=== PATIENT | male | born 1970 | race Two or more races ===

== ENCOUNTER 2020-08-06 13:21 | Outpatient (REF) | payer OTHER, SELFPAY | END 2020-08-06 13:22 | disposition home or self-care (01) | LOC: HO.LAB 13:21 | PROVIDERS: PCP Internal Medicine; Visit Provider Internal Medicine | DX: Z20.828 Contact with and (suspected) exposure to other viral communicable diseases (principal) | CPT/HCPCS: C9803; U0003 ==

== ENCOUNTER 2021-01-15 10:00 | Outpatient (REF) | payer OTHER, SELFPAY ==
--- NOTE | ~2021-01-15 | XR_ITS ---
EXAMINATION: XR CHEST CLINICAL INFORMATION: Shortness of breath COMPARISON: Chest 06/09/2019 TECHNIQUE: 2 views of the chest were obtained. FINDINGS: The lungs are hyperinflated but clear of acute process. The heart size and pulmonary vascularity is normal. No gross bony abnormality seen. XR/XR chest 2V IMPRESSION: Hyperinflated lungs without acute process.
== END 2021-01-15 10:01 | disposition home or self-care (01) ==
LOC: HO.XRAY 10:00
PROVIDERS: PCP Registered Nurse Community Health; Visit Provider Registered Nurse Community Health
DX: R06.02 Shortness of breath (principal)
CPT/HCPCS: 71046

== ENCOUNTER 2021-04-29 09:48 | Day surgery (SDC) | payer OTHER, SELFPAY ==
--- NOTE | 2021-04-28 13:08 | P.CONAN_ITS ---
Documented by User: Tina Robins NP 04/28/21 13:08 HPI - Anesthesia Eval Consult details Narrative: 51yo M for Colonoscopy FORMERLY [facility], [facility] Past Medical History Medical History Arthritis Asthma Hx of hematuria Smoker Surgical History Surgical History (Updated 04/22/21 @ 15:18 by Anne Mas, RN) History of hand surgery Social History Social History Patient Tobacco Use Status: Current everyday Tobacco user Use of substances other than those prescribed or required for medical reasons: Yes Have you been hit, kicked, punched, or otherwise hurt by someone within the past year? If so, by whom?: No Are you DNR?: No Advance Directives: No Advance Directives Information Provided: Yes Recently lost weight without trying: No Nutrition Risks: No Nutritional Risk Meds Allergies Allergy/AdvReac Type Severity Reaction Status Date / Time No Known Allergies Allergy Unverified 04/22/21 15:19 Home Medications Medication Instructions Recorded Confirmed Last Taken Type albuterol sulfate 90 mcg/actuation 1 puff INHALATION QID PRN 04/22/21 04/29/21 04/29/21 History aerosol inhaler (ProAir HFA) Exam Exam Date and Time: April 28, 2021 1308 Assessment and Plan Assessment Anesthesia Assessment: Chart Reviewed Documented by User: Vinnie Valle MD 04/29/21 10:56 FORMERLY [facility], [facility] Past Medical History Medical History Arthritis Asthma Hx of hematuria Smoker Surgical History Surgical History (Updated 04/22/21 @ 15:18 by Anne Mas, RN) History of hand surgery Social History Social History Patient Tobacco Use Status: Current everyday Tobacco user Use of substances other than those prescribed or required for medical reasons: Yes Have you been hit, kicked, punched, or otherwise hurt by someone within the past year? If so, by whom?: No Are you DNR?: No Advance Directives: No Advance Directives Information Provided: Yes Recently lost weight without trying: No Nutrition Risks: No Nutritional Risk Meds Allergies Allergy/AdvReac Type Severity Reaction Status Date / Time No Known Allergies Allergy Unverified 04/22/21 15:19 Home Medications Medication Instructions Recorded Confirmed Last Taken Type albuterol sulfate 90 mcg/actuation 1 puff INHALATION QID PRN 04/22/21 04/29/21 04/29/21 History aerosol inhaler (ProAir HFA) Exam Airway Mallampati Class: II TM Dist: >3cm Neck ROM: Full
[2021-04-29 10:05] VITALS: BP 116/81; PULSE 78; RESP 18; TEMP 36.3; O2SAT 98; BMI 20.5
[2021-04-29] MEDS: Lactated Ringers 1,000 ML 100 ML IVCONT (10:15)
[2021-04-29 12:17] VITALS: BP 85/47; PULSE 66; RESP 16; TEMP 36.2; O2SAT 98
--- NOTE | 2021-04-29 12:20 | P.BOP_ITS ---
Brief Operative Note Date of Service: 04/29/21 Pre-op diagnosis: Screening Post-op diagnosis: other (Colon polyp) Procedure: Colonoscopy to the cecum and TI with bx/removal of polyp Surgeon: Gage Hammer Anesthesia: MAC Was an Customs Entry Writer used for this Procedure?: No Estimated blood loss (mL): 2.0 Pathology: other (A. Transverse colon polyp) Condition: stable Disposition: PACU
[2021-04-29 12:23] VITALS: BP 82/47; PULSE 62; RESP 16; O2SAT 97
[2021-04-29 12:28] VITALS: BP 95/57; PULSE 62; RESP 16; O2SAT 97
[2021-04-29 12:35] VITALS: BP 101/67; PULSE 57; RESP 16; TEMP 36.2; O2SAT 97
[2021-04-29 12:41] VITALS: BP 102/72; PULSE 63; RESP 16; TEMP 36.2; O2SAT 97
--- NOTE | 2021-04-29 12:44 | OP_ITS ---
SURGEON: Gage Hammer MD INDICATIONS: The patient presents for evaluation of colorectal cancer screening. Full consent has been obtained from him for this, including risks of bleeding and perforation. PREOPERATIVE DIAGNOSIS: Colorectal cancer screening. POSTOPERATIVE DIAGNOSIS: PROCEDURE PERFORMED: Colonoscopy to cecum and terminal ileum with biopsy and removal of polyp. ESTIMATED BLOOD LOSS: COMPLICATIONS: ANESTHESIA: Monitored anesthesia care. ASSISTANTS: SPECIMENS: POSTOPERATIVE DIAGNOSES: Colorectal cancer screening, small colon polyp, sigmoid diverticulosis, and internal hemorrhoids. DESCRIPTION OF PROCEDURE: The patient was placed in the left lateral decubitus position. The digital rectal exam revealed no abnormalities. The Olympus video pediatric colonoscope was entered into the rectum and advanced easily to the cecum. Once in the cecum, I did identify normal-appearing cecal pouch with appendiceal orifice and a normal-appearing ileocecal valve. The terminal ileum was cannulated and appeared normal. Scope was withdrawn back in the colon. The entire cecum and ileocecal valve appeared normal. The scope was slowly withdrawn assessing all mucosal surfaces carefully. Preparation was excellent. In the transverse colon, was a flat approximately 4 or 5 mm polyp, which was biopsied and completely removed with cold biopsy forceps. I did not visualize any other polyps, colitis, nor angiodysplasia. There was a mild amount of sigmoid diverticulosis. In the rectum, scope was retroflexed visualizing small internal hemorrhoids, but no other pathology. The rectal mucosa appeared normal. The scope was straightened out and withdrawn from the patient. He tolerated the procedure well and was returned to the recovery area in stable condition. IMPRESSION: 1. Small colon polyp, status post biopsy and removal. 2. Diverticulosis. 3. Internal hemorrhoids. PLAN: The results of the biopsy will be checked. Given the family history of 2 sisters with colon polyps, I would recommend a repeat colonoscopy in 5 years for further screening even if the polyp is not a tubular adenoma. He will otherwise see me on a p.r.n. basis. MD ANALY Vee/LEROY / [id number]
== END 2021-04-29 12:43 | disposition home or self-care (01) ==
PROVIDERS: Visit Provider Internal Medicine
PROC: 0DJD8ZZ Inspection of Lower Intestinal Tract, Via Natural or Artificial Opening Endoscopic (ICD-10-PCS; CPT 45378; principal; 2021-04-29 11:20)
DX: Z12.11 Encounter for screening for malignant neoplasm of colon (principal); D12.3 Benign neoplasm of transverse colon; K57.30 Diverticulosis of large intestine without perforation or abscess without bleeding; K64.8 Other hemorrhoids; Z83.71 Family history of colonic polyps
CPT/HCPCS: 45380; 88305; J2370

== ENCOUNTER 2021-06-24 12:55 | Outpatient (REF) | payer OTHER, SELFPAY ==
[2021-06-24 17:17] LABS: Urine Cytology See Pathology rpt
== END 2021-06-24 12:56 | disposition home or self-care (01) ==
LOC: HO.LAB 12:55
PROVIDERS: PCP Registered Nurse Community Health; Visit Provider Urology
DX: R31.29 Other microscopic hematuria (principal)
CPT/HCPCS: 88112; 99202

== ENCOUNTER 2021-07-07 14:25 | Outpatient (REF) | payer OTHER, SELFPAY ==
[2021-07-07 15:21] LABS: Blood Urea Nitrogen 16 mg/dL (9-16); Calcium 8.9 mg/dL (8.4-10.2)
[2021-07-08 08:49] LABS: Estimated Glomerular Filt Rate > 60
== END 2021-07-07 14:26 | disposition home or self-care (01) ==
LOC: HO.LAB 14:25
PROVIDERS: PCP Internal Medicine; Visit Provider Urology
DX: N20.0 Calculus of kidney (principal); R31.29 Other microscopic hematuria; R39.15 Urgency of urination
CPT/HCPCS: 36415; 82310; 82565; 84520

== ENCOUNTER 2021-07-08 07:51 | Outpatient (REF) | payer OTHER, SELFPAY ==
--- NOTE | ~2021-07-08 | CT_ITS ---
EXAMINATION: CT ABDOMEN AND PELVIS WITHOUT AND WITH CONTRAST CLINICAL INFORMATION: Gross hematuria. COMPARISON: None. TECHNIQUE: Noncontrast CT of the abdomen and pelvis is performed followed by split bolus contrast-enhanced images using 85 mL Omnipaque 350 contrast.?Postcontrast imaging is performed during the combined nephrogram and excretion phase. Sagittal and coronal reformatted images were obtained on the technologist's workstation for both the precontrast and postcontrast phases. This CT examination was performed using dose optimization techniques as appropriate, variously including the following: *Automated exposure control *Adjustment of mA and/or kV according to patient size (this includes techniques or standardized protocols for targeted exams where dose is matched to indication/reason for exam; i.e. extremities or head) *Use of iterative reconstruction technique DLP: 284 mGy-cm FINDINGS: LUNG BASES: The visualized lung bases are unremarkable. LIVER, GALLBLADDER, AND BILIARY TREE: The liver is normal in size, shape, and attenuation. No focal hepatic lesion or biliary ductal dilatation is present. The gallbladder is unremarkable with no evidence of radiopaque gallstones, gallbladder wall thickening, or obvious pericholecystic inflammatory changes. PANCREAS: Unremarkable. SPLEEN: Unremarkable. ADRENAL GLANDS: Unremarkable. KIDNEYS AND URETERS: The kidneys are normal in size, shape, and attenuation. No hydronephrosis, hydroureter, or calculi seen. There are 2 small low-attenuation lesions in the left kidney probably representing cysts. There is slight mass effect on the right posterior renal pelvis from a vessel. The collecting systems are otherwise normal. There is question of luminal narrowing or small filling defect in the right distal ureter, for example sagittal reconstructed image 59 series 11. This does not appear to be related to mass effect from a vessel, and retrograde exam should be considered. The right ureter is otherwise unremarkable. The proximal left ureter is well opacified with excreted contrast and normal appearing. The left distal ureter is not optimally opacified with excreted contrast. BLADDER: Unremarkable. GASTROINTESTINAL TRACT: The small and large bowel are unremarkable. The appendix is unremarkable. ABDOMINAL WALL: No significant hernia is appreciated. LYMPH NODES: Normal. VASCULAR: Unremarkable. PELVIC VISCERA: Unremarkable. OSSEUS STRUCTURES: There are mild degenerative changes at the hip joints. CT/CT urogram IMPRESSION: Small left renal cysts. Slight luminal narrowing or mass effect on the right posterior distal ureter. Retrograde exam should be considered. The left distal ureter is not optimally opacified with excreted contrast.
[2021-07-08] MEDS: iohexoL 350 MG/ML 100 ML INFUS..BTL IV (10:13)
== END 2021-07-08 07:52 | disposition home or self-care (01) ==
LOC: HO.CT 07:51
PROVIDERS: PCP Registered Nurse Community Health; Visit Provider Urology
DX: R31.0 Gross hematuria (principal); R31.29 Other microscopic hematuria
CPT/HCPCS: 74178; Q9967

== ENCOUNTER → 2021-07-29 12:59 | Outpatient (BNVA) | payer OTHER, SELFPAY | PROVIDERS: PCP Registered Nurse Community Health; Visit Provider Urology ==

== ENCOUNTER 2021-08-08 09:58 | Outpatient (REF) | payer OTHER, SELFPAY ==
[2021-08-08 11:10] LABS: COVID-19 Test Positive (Negative)
== END 2021-08-08 09:59 | disposition home or self-care (01) ==
LOC: HO.LAB 09:58
PROVIDERS: Visit Provider Internal Medicine
DX: Z20.822 Contact with and (suspected) exposure to COVID-19 (principal)
CPT/HCPCS: 36415; 87635; C9803

== ENCOUNTER 2022-07-28 14:47 | Outpatient (REF) | payer OTHER, SELFPAY ==
--- NOTE | 2022-07-28 | PFT_ITS ---
Forced vital capacity 114%, FEV1 of 98%, FEV1/FVC ratio is 66. SES38-41 of 56% and MVV 76%. Post bronchodilator therapy, there is significant improvement in FEV1 and OGX51-48. Total lung capacity 121% and residual volume 141%. Diffusion capacity 95%. CONCLUSION: There is evidence of mild obstructive airway disorder with some air trapping. Almost complete reversibility after bronchodilator therapy is noted. These findings are consistent with mild bronchial asthma. Clinical correlation recommended. Kisha Weems MD MSFabiano/MODL / [id number]
== END 2022-07-28 14:48 | disposition home or self-care (01) ==
LOC: HO.RESP 14:47
PROVIDERS: PCP Registered Nurse; Visit Provider Registered Nurse
DX: R06.02 Shortness of breath (principal); Z72.0 Tobacco use
CPT/HCPCS: 94060; 94727; 94729

== ENCOUNTER 2022-08-01 11:03 | Outpatient (REF) | payer OTHER, SELFPAY ==
[2022-08-01 16:50] LABS: Urine Cytology See Pathology rpt
== END 2022-08-01 11:04 | disposition home or self-care (01) ==
LOC: HO.LAB 11:03
PROVIDERS: Visit Provider Urology
DX: R31.29 Other microscopic hematuria (principal); R39.11 Hesitancy of micturition
CPT/HCPCS: 88112; 99212

== ENCOUNTER → 2022-10-10 13:39 | Outpatient (BNVA) | payer OTHER, SELFPAY | PROVIDERS: PCP Registered Nurse; Visit Provider Orthopaedic Surgery | DX: M18.11 Unilateral primary osteoarthritis of first carpometacarpal joint, right hand (principal); M19.041 Primary osteoarthritis, right hand; M19.042 Primary osteoarthritis, left hand; R20.0 Anesthesia of skin | CPT/HCPCS: 99202 ==

== ENCOUNTER 2023-01-26 13:15 | Outpatient (REF) | payer OTHER, SELFPAY ==
--- NOTE | ~2023-01-26 | CT_ITS ---
EXAMINATION: CT CHEST SCREENING CLINICAL INFORMATION: Nicotine dependence. COMPARISON: Chest x-ray 01/18/2021. TECHNIQUE: Multidetector volumetric CT imaging of the chest is performed without contrast using low dose technique. Additional 2D coronal and sagittal reformatted images and axial 3D maximum intensity projection (MIP) images are generated on the CT workstation. This CT examination was performed using dose optimization techniques as appropriate, variously including the following: *Automated exposure control *Adjustment of mA and/or kV according to patient size (this includes techniques or standardized protocols for targeted exams where dose is matched to indication/reason for exam; i.e. extremities or head) *Use of iterative reconstruction technique DLP: 42 mGy-cm. FINDINGS: LUNGS: The lungs are clear with no evidence of inflammation or nodules. MEDIASTINUM: The thyroid lobes are symmetric and normal. The central trachea and the bronchi are widely patent. The heart size and the great vessels are normal caliber. No pericardial effusion seen. No abnormal size mediastinal lymph nodes. CORONARY ARTERY CALCIFICATION: Mild coronary artery calcifications are present. PLEURA: There is no pleural effusion. No pleural mass or thickening. AXILLA: No lymphadenopathy. UPPER ABDOMEN: Visualized liver, spleen, pancreas and bilateral adrenal glands are unremarkable. No radiopaque gallstone seen. OSSEOUS STRUCTURES: No aggressive lytic or sclerotic process seen. CT/CT lung screening IMPRESSION: Unremarkable CT chest exam. ASSESSMENT: Lung-RADS category 1: Negative RECOMMENDATION: Low-dose annual CT chest.
== END 2023-01-26 13:16 | disposition home or self-care (01) ==
LOC: HO.CT 13:15
PROVIDERS: PCP Registered Nurse; Visit Provider Physician Assistant Medical
DX: Z12.2 Encounter for screening for malignant neoplasm of respiratory organs (principal); F17.210 Nicotine dependence, cigarettes, uncomplicated
CPT/HCPCS: 71271; G0296

== ENCOUNTER 2023-02-09 13:45 | Outpatient (AMB) | payer OTHER, SELFPAY ==
--- NOTE | 2023-02-09 14:07 | MHC.OFFVIS ---
Intake Intake Visit Reasons: 6m follow up/UA Intake Note: Patient is present for Follow Up Urinalysis Urology Med: Finasteride Antibiotic Allergy: None Blood Thinner: None Allergies No Known Allergies Allergy (Verified 02/09/23 14:08) HPI HPI Comments History of Present Illness Details Jey is a pleasant male. He is a patient of Dr. Adorno. He is seen for the following urologic conditions - microscopic hematuria - urinary hesitancy Persistent microscopic hematuria on finasteride Lower urinary tract symptoms Progressive Primarily urinary hesitancy with incomplete bladder emptying Current therapy - finasteride Microscopic hematuria Longstanding since he was a child Prior urology evaluations periodically over time Last evaluation approximately 2014 Cytology 07/10 negative Imaging 07/10 CT urogram no evidence of filling defects Background history smoker May follow in 12 months [facility] Medical History Arthritis Asthma Microscopic hematuria Nicotine dependence, cigarettes, uncomplicated Tubular adenoma of colon (~2020) Surgical History History of colonoscopy History of hand surgery Family History Father Heart attack Brother Multiple sclerosis Mother Osteoporosis Social History Alcohol intake: current Patient Tobacco Use Status: Current everyday Tobacco user Cigarettes Per Day: 10 Years Smoked: (onset 14yo, 1ppd x 38years - now 1/2 ppd - 35pyh) Current occupational status: employed 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 Review of Systems Const Denies chills and Denies fever(s) Card Reports no additional complaints and Denies syncope Resp Denies cough GI Denies abdominal pain and Denies heartburn Reports as per HPI and Denies change in libido Neuro Denies syncope Psych Denies change in libido Endo Denies change in libido Physical Exam Const General: cooperative, healthy appearing, comfortable and no acute distress Orientation/consciousness: patient oriented x3 HEENT Face and sinus: Yes normal facial exam Mouth: moist mucous membranes Neck Neck: Yes normal visual inspection, Yes full ROM and Yes trachea midline Chest Chest palpation & inspection: normal inspection of the chest Resp Effort & Inspection: normal respiratory effort, able to speak in complete sentences and no respiratory distress GI Inspection: Yes normal to inspection Back/Spine/Pelvis Cervical Spine: normal cervical lordosis Thoracic/Lumbar Spine: thoracic and lumbar spine normal to inspection Skin General skin exam: no rashes or lesions noted Neuro General: patient oriented x3, gait normal, tone normal and moves all extremities Extrem General: Yes normal to inspection and Yes capillary refill normal Results AMB Urinalysis, Automated UA Leukoctes 0 Emily/uL Last Edit by Ruma Mary Charito on 02/09/23 14:27 UA Nitrite Negative Last Edit by Ruma Mary A on 02/09/23 14:27 UA Urobilinogen 0.2 mg/dL Last Edit by Ruma Mary A on 02/09/23 14:27 UA Protein 0 mg/dL Last Edit by Ruma Mary A on 02/09/23 14:27 UA pH 6.0 Last Edit by Ruma Mary A on 02/09/23 14:27 UA Blood 200 Mac/uL Last Edit by Ruma Mary [facility] on 02/09/23 14:27 UA Specific [place] 1.030 Last Edit by Ruma Mary A on 02/09/23 14:27 UA Ketone Negative Last Edit by Ruma Mary [facility] on 02/09/23 14:27 UA Bilirubin 0 mg/dL Last Edit by Ruma Mary A on 02/09/23 14:27 UA Glucose 0 mg/dL Last Edit by Ruma Mary [facility] on 02/09/23 14:27 Results Reviewed Results Reviewed: Laboratory Last Values Urine pH (Auto) 6.0 02/09/23 14:08 Specific [place] (Auto) 1.030 02/09/23 14:08 Urine Protein (Auto) 0 mg/dL 02/09/23 14:08 Glucose (UA)(Auto) 0 mg/dL 02/09/23 14:08 Urine Ketones (Auto) Negative 02/09/23 14:08 Urine Blood (Auto) 200 Mac/uL 02/09/23 14:08 Urine Nitrite (Auto) Negative 02/09/23 14:08 Urine Bilirubin (Auto) 0 mg/dL 02/09/23 14:08 Urine Urobilinogen (Auto) 0.2 mg/dL 02/09/23 14:08 Leukocyte Esterase (Auto) 0 Emily/uL 02/09/23 14:08 Assessment & Plan Assessment & Plan (1) Microscopic hematuria: Code(s): R31.29 - Other microscopic hematuria Plan Six months repeat UA Orders: Orders AMB Urinalysis Automated 02/09/23 Z13.9 - Encounter for screening, unspecified Patient Instructions: Imaging studies, laboratory and physical exam results were discussed and reviewed in detail. No major barriers to patient understanding were identified. An opportunity to ask questions regarding the treatment plan was provided. All questions were answered. The patient expressed understanding and agreement with the above treatment plan. The patient is aware they should contact our office by phone for worsening of their current condition or the appearance of new urologic symptoms. Compliance is encouraged with any medications and followup testing that is ordered. It is a privilege to participate in the urologic care of your patient. If you have any questions or concerns regarding treatment for the above conditions, or other urologic issues, please do not hesitate to contact me. The office telephone contact is [phone]. This note is constructed using voice recognition software. While every effort has been made to ensure accuracy warp hauler errors may have been included. Yours sincerely, Dr Tigre Soria MD, [facility] - Urology Providers of Expert, Compassionate Care for the Genitourinary System Coding Level of Care Code Est Pt Level 3 (07910) Diagnoses Microscopic hematuria R31.29
== END 2023-02-09 14:49 | disposition home or self-care (01) ==
LOC: HO.HUSH 13:45
PROVIDERS: PCP Registered Nurse; Visit Provider Urology
DX: R31.29 Other microscopic hematuria (principal)
CPT/HCPCS: 99213

== ENCOUNTER → 2023-02-09 13:45 | Outpatient (BNVA) | payer OTHER, SELFPAY | PROVIDERS: PCP Registered Nurse; Visit Provider Urology | DX: R31.29 Other microscopic hematuria (principal); R39.11 Hesitancy of micturition; R33.9 Retention of urine, unspecified; Z79.899 Other long term (current) drug therapy | CPT/HCPCS: 99212 ==

== ENCOUNTER 2023-08-10 13:22 | Outpatient (AMB) | payer OTHER, SELFPAY ==
--- NOTE | 2023-08-10 13:26 | MHC.OFFVIS ---
Intake Intake Visit Reasons: 6m/UA Intake Note: Patient is Present for Telephone Follow Up Urology Med: Finasteride, Antibiotic Allergy: none Blood Thinner:None Allergies No Known Allergies Allergy (Verified 08/10/23 13:27) Medication List - Last Reconciled 08/10/23 by Tigre Soria MD albuterol sulfate 90 mcg/actuation (ProAir HFA) 1 puff inhalation QID PRN budesonide-formoterol 80-4.5 mcg/actuation (Symbicort) 2 puffs inhalation BID diclofenac sodium 1% grams topical TID PRN finasteride 5 mg PO DAILY 90 days ibuprofen 800 mg PO Q8H nicotine (Nicotrol) 0 mg inhalation HPI HPI Comments History of Present Illness Details Jey is a pleasant male. He is a patient of Dr. Adorno. He is seen for the following urologic conditions - microscopic hematuria - urinary hesitancy Telemedicine Evaluation 15 min Consultation [employer] Basil Video attempted Persistent microscopic hematuria on finasteride Continued benefit from medication regarding urinary performance Lower urinary tract symptoms Progressive Primarily urinary hesitancy with incomplete bladder emptying Current therapy - finasteride Microscopic hematuria Longstanding since he was a child Prior urology evaluations periodically over time Last evaluation approximately 2014 Cytology 07/10 negative Imaging 07/10 CT urogram no evidence of filling defects Background history smoker May follow in 12 months [facility] Medical History Tubular adenoma of colon (~2020) Nicotine dependence, cigarettes, uncomplicated Microscopic hematuria Arthritis Asthma Surgical History History of colonoscopy History of hand surgery Family History Father Heart attack Brother Multiple sclerosis Mother Osteoporosis Social History Alcohol intake: current Patient Tobacco Use Status: Current everyday Tobacco user Cigarettes Per Day: 10 Years Smoked: (onset 14yo, 1ppd x 38years - now 1/2 ppd - 35pyh) Current occupational status: employed 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 Review of Systems Const All systems reviewed & are unremarkable except as noted in HPI and below Reports no additional complaints Resp Reports no additional complaints GI Reports no additional complaints Reports as per HPI Musc Reports no additional complaints Physical Exam Telemedicine evaluation Appropriate responses Regular breathing rate and rhythm HEENT Head: Yes normal to inspection Ears: hearing grossly normal bilaterally Eyes General: appearance normal, both eyes and all related structures Neck Neck: Yes normal visual inspection Chest Chest palpation & inspection: normal inspection of the chest Resp Effort & Inspection: normal respiratory effort and able to speak in complete sentences Assessment & Plan Assessment & Plan (1) Urinary hesitancy: Code(s): R39.11 - Hesitancy of micturition (2) Bladder outlet obstruction: Code(s): N32.0 - Bladder-neck obstruction Plan Twelve month follow-up Medications: Refilled finasteride 5 mg PO DAILY 90 tabs 3RF 90 days R39.11 - Hesitancy of micturition, N40.1 - Benign prostatic hyperplasia with lower urinary tract symptoms, N13.8 - Other obstructive and reflux uropathy, R33.9 - Retention of urine, unspecified Patient Instructions: Imaging studies, laboratory and physical exam results were discussed and reviewed in detail. No major barriers to patient understanding were identified. An opportunity to ask questions regarding the treatment plan was provided. All questions were answered. The patient expressed understanding and agreement with the above treatment plan. The patient is aware they should contact our office by phone for worsening of their current condition or the appearance of new urologic symptoms. Compliance is encouraged with any medications and followup testing that is ordered. It is a privilege to participate in the urologic care of your patient. If you have any questions or concerns regarding treatment for the above conditions, or other urologic issues, please do not hesitate to contact me. The office telephone contact is [phone]. This note is constructed using voice recognition software. While every effort has been made to ensure accuracy timber surveyor errors may have been included. Yours sincerely, Dr Tigre Soria MD, [facility] - Urology Providers of Expert, Compassionate Care for the Genitourinary System Telehealth Telehealth Location of provider rendering services: practice address Location of patient: address on file Patient Identification confirmed using: Name, : Yes Telehealth method: video Patient verbally consented to treatment: Yes Patient verbally consented to billing insurance company: Yes Patient informed of any privacy concerns related to visit: Yes Coding Level of Care Code Tele Est Pt Level 4 (08006) Diagnoses Urinary hesitancy R39.11 Bladder outlet obstruction N32.0
== END 2023-08-10 14:10 | disposition home or self-care (01) ==
LOC: HO.HUSH 13:22
PROVIDERS: PCP Registered Nurse; Visit Provider Urology
DX: R39.11 Hesitancy of micturition (principal); N32.0 Bladder-neck obstruction
CPT/HCPCS: 99213

== ENCOUNTER → 2023-08-10 13:22 | Outpatient (BNVA) | payer OTHER, SELFPAY | PROVIDERS: PCP Registered Nurse; Visit Provider Urology ==

== ENCOUNTER 2024-02-29 13:12 | Outpatient (REF) | payer OTHER, SELFPAY ==
--- NOTE | ~2024-02-29 | CT_ITS ---
EXAMINATION: CT LOW-DOSE SCREENING CHEST WITHOUT CONTRAST CLINICAL INFORMATION: Nicotine dependence, cigarettes, uncomplicated. The patient is a current smoker with a 39 pack-year history of smoking. COMPARISON: LDCT chest 01/26/2023. TECHNIQUE: Multidetector volumetric CT imaging of the chest is performed on a Siemens SOMATOM Definition scanner without contrast using low dose technique. Additional 2D coronal and sagittal reformatted images and axial 3D maximum intensity projection (MIP) images are generated on the CT workstation. This CT examination was performed using dose optimization techniques as appropriate, variously including the following: *Automated exposure control *Adjustment of mA and/or kV according to patient size (this includes techniques or standardized protocols for targeted exams where dose is matched to indication/reason for exam; i.e. extremities or head) *Use of iterative reconstruction technique TOTAL EXAM DLP: 43 mGy-cm. CTDIvol: 1.21 mGy. Please note, due to [employer] contractual, systems, and staffing issues, a radiologist was not available for review and dictation until 04/08/2024. FINDINGS: PULMONARY NODULES: -Mild respiratory degradation is present. -There are no pulmonary nodules in either lung. LUNGS: -Minor atelectasis or scarring present in the left posterior costophrenic sulcus. Lungs are otherwise clear, without abnormal consolidation or groundglass opacities. -There is mild centrilobular emphysema. -Minimal small airway thickening is present without significant bronchiectasis or endobronchial mucous plugging. -Central airways are patent and normal. -No pleural effusion or mass. MEDIASTINUM: -There is no adenopathy or mass. -The aorta is normal in caliber with minimal calcification. -The main pulmonary artery is normal in size. -Heart size is normal. No pericardial effusion. Mitral annular calcifications present. CORONARY ARTERY CALCIFICATION: Mild to moderate LAD calcifications. THYROID GLAND: Possible nodule on the right superiorly measuring 1.3 cm. This is not definitive. Otherwise normal. CHEST WALL/AXILLA: No abnormal lymph nodes or masses. Relative paucity of fat present. UPPER ABDOMEN: -Probable small type I hiatus hernia. Mild thickening of the distal esophagus is incidentally noted, possibly related to esophagitis. -Otherwise, no gross abnormality in the upper abdomen allowing for limitations of low-dose technique. OSSEOUS STRUCTURES: No suspicious focal findings. CT/CT lung screening IMPRESSION: 1. No pulmonary nodules. 2. Lungs are clear without evidence of active pulmonary disease. 3. Mild emphysema is present. Mild small airway thickening may suggest chronic bronchitis. 4. Small type I hiatus hernia suspected with mild thickening of the distal esophagus, possibly related to esophagitis. 5. Possible but not definitive 1.3 cm superior right thyroid nodule. ASSESSMENT: 1. Lung-RADS Category 1: Negative. There are no nodules or there are definitely benign nodules. 2. Lung-RADS Category S: None. RECOMMENDATION: Continued routine annual low-dose CT lung screening in 1 year is recommended. An order for CT CHEST LOW DOSE CANCER SCREENING ([id number]) can be placed.
== END 2024-02-29 13:13 | disposition home or self-care (01) ==
LOC: HO.CT 13:12
PROVIDERS: PCP Registered Nurse; Visit Provider Physician Assistant Medical
DX: Z12.2 Encounter for screening for malignant neoplasm of respiratory organs (principal); F17.210 Nicotine dependence, cigarettes, uncomplicated
CPT/HCPCS: 71271

== ENCOUNTER 2024-06-06 14:42 | Outpatient (REF) | payer OTHER, SELFPAY ==
--- NOTE | ~2024-06-06 | US_ITS ---
EXAMINATION: US ABDOMEN LIMITED CLINICAL INFORMATION: Reducible abdominal wall bulge superior to umbilicus. LDCT incidental finding of small type I hiatal hernia. Noted on CT chest 02/29/2024. COMPARISON: CT lung screening 02/29/2024. CT urogram 07/08/2021. TECHNIQUE: Real-time imaging of the palpable area of bulge just below the xiphoid process. FINDINGS: Small defect in the anterior abdominal wall roughly 2 mm through which hypoechoic soft tissue herniating from the abdomen into the subcutaneous layer roughly measures 1 x 0.3 cm probably a hernia. The area correlates with the palpable lump felt by the patient. US/US abdomen limited IMPRESSION: Ultrasound confirms small anterior abdominal wall hernia. This correlates with the area of palpable lump felt by the patient. Electronically signed by: Dexter Francis MD 07/06/2024 05:25 PM KRISTINE
== END 2024-06-06 14:43 | disposition home or self-care (01) ==
LOC: HO.US 14:42
PROVIDERS: PCP Registered Nurse; Visit Provider Registered Nurse
DX: E04.1 Nontoxic single thyroid nodule (principal)
CPT/HCPCS: 76536; 76705

== ENCOUNTER 2024-07-04 12:48 | Outpatient (REF) | payer OTHER, SELFPAY ==
--- NOTE | 2024-07-04 | PFT_ITS ---
Flows: FEV1: 107 % of predicted at 3.28 L FVC: 125 % of predicted at 4.84 L FEV1/FVC: 68 % Bronchodilator response: Absent Volumes: Total lung capacity: 109 % of predicted at 6.42 L Residual volume: 95 % of predicted at 1.59 L Slow vital capacity: 113 % of predicted at 4.84 L Expiratory reserve volume: 193 % of predicted at 1.98 L Diffusion capacity: Normal Impression: Mild obstructive ventilatory defect with no bronchodilator response. MTDD
[2024-07-04 14:26] VITALS: PULSE 63; O2SAT 99
== END 2024-07-04 12:49 | disposition home or self-care (01) ==
LOC: HO.RESP 12:48
PROVIDERS: PCP Registered Nurse; Visit Provider Registered Nurse
DX: J44.89 Other specified chronic obstructive pulmonary disease (principal); F17.200 Nicotine dependence, unspecified, uncomplicated
CPT/HCPCS: 94010; 94640; 94727; 94729

== ENCOUNTER → 2024-07-04 13:00 | Outpatient (BNV) | payer OTHER, SELFPAY | PROVIDERS: PCP Registered Nurse; Visit Provider Internal Medicine Pulmonary Disease | DX: J44.9 Chronic obstructive pulmonary disease, unspecified (principal) | CPT/HCPCS: 94060; 94727; 94729 ==

== ENCOUNTER 2024-07-24 14:24 | Outpatient (AMB) | payer OTHER, SELFPAY ==
--- NOTE | 2024-07-24 14:36 | A.OFFVIS_ITS ---
Vital Signs 07/24/24 14:42 Height 5 ft 7 in Weight 118 lb BMI 18.5 BP 124/89 Blood Pressure Location Rt brachial Position Standing Pulse 94 Intake Visit Reasons: abdominal wall hernia Intake Note: This patient presents for ventral hernia assessment. Pt c/o; reports bulge, reports discomfort, reports no changes to bowel habits. Abd US: 06/06/2024 [facility] Facilitator Required: No Accompanied by: Self / Same As Patient Allergies No Known Allergies Allergy (Verified 07/24/24 14:44) Medication List - Last Reconciled 07/24/24 by Itz Camara MD albuterol sulfate 90 mcg/actuation (ProAir HFA) 1 puff inhalation QID PRN budesonide-formoterol 80-4.5 mcg/actuation (Symbicort) 2 puffs inhalation BID diclofenac sodium 1% grams topical TID PRN finasteride 5 mg PO DAILY 90 days ibuprofen 800 mg PO Q8H nicotine (Nicotrol) 0 mg inhalation HPI HPI abdominal wall hernia: Details: 54-year-old male referred for a ventral hernia. He has noticed this small lump on his epigastric area for about 13 years. She says that this was much smaller before but has been steadily increasing in size over the years. He describes discomfort with this now. 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 He had an ultrasound done last month showing a small epigastric hernia containing fat. He denies GI complaints He admits to being a smoker. 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 [employer] Review of Systems Const Denies chills and Denies fever(s) Card Denies chest pain, Denies dyspnea and Denies dyspnea on exertion Resp Denies cough, Denies dyspnea and Denies dyspnea on exertion GI Denies hematochezia and Denies change in bowel habits Denies hematuria and Denies difficulty urinating Musc Denies back pain and Denies limited range of motion Neuro Denies focal weakness and Denies convulsions Psych Denies depression and Denies mood swings Physical Exam Vital Signs: Last Vital Signs Pulse 94 07/24/24 14:42 BP 124/89 07/24/24 14:42 BMI result Body Mass Index 18.5 Const General: comfortable and no acute distress Orientation/consciousness: patient oriented x3 Neck Neck: Yes no lymphadenopathy Resp Auscultation: clear to auscultation bilaterally Cardio Rhythm: regular rhythm GI Other: Small reducible mass on the epigastric area probably about 1 cm in size, nontender Palpation (GI): Soft to palpation, nontender and no guarding Neuro General: patient oriented x3 Assessment & Plan Assessment & Plan (1) Epigastric hernia: Code(s): K43.9 - Ventral hernia without obstruction or gangrene Category: Medical Plan He has a small epigastric hernia, seen with Valsalva especially when he is upright. This is also noted on an ultrasound ordered by his primary care physician. He wants this repaired because of discomfort. He says that this has been increasing in size. I explained to him the technique of repair with possible mesh placement. I reviewed the risks including but not limited to bleeding, infections, bowel injury, recurrence, postop pain, as well as the benefits and alternatives. I also reviewed with him what to expect postoperatively. Coding Level of Care Code New Pt Level 3 (94436) Diagnoses Epigastric hernia K43.9
[2024-07-24 14:42] VITALS: BP 124/89; PULSE 94; BMI 18.5
== END 2024-07-24 14:53 | disposition home or self-care (01) ==
PROVIDERS: PCP Registered Nurse; Visit Provider Surgery
DX: K43.9 Ventral hernia without obstruction or gangrene (principal)
CPT/HCPCS: 99203

== ENCOUNTER → 2024-07-24 14:24 | Outpatient (BNVA) | payer OTHER, SELFPAY | PROVIDERS: PCP Registered Nurse; Visit Provider Surgery | DX: K43.9 Ventral hernia without obstruction or gangrene (principal) | CPT/HCPCS: 99202 ==

== ENCOUNTER 2024-09-02 11:11 | Day surgery (SDC) | payer OTHER, SELFPAY ==
--- NOTE | 2024-08-29 12:42 | HO.ANESPROP2 ---
Documented by User: Tina Robins NP 08/29/24 12:43 HPI - Anesthesia Eval Consult details Narrative: 54yo M for Repair Hernia Epigastric Reducible with possible mesh PMFSH Active Problems Active Problems: All Active Problems Epigastric hernia (Acute) Bladder outlet obstruction (Acute) Microscopic hematuria (Acute) Tubular adenoma of colon (Acute ~2020) Nicotine dependence, cigarettes, uncomplicated (Acute) Osteoarthritis of hands, bilateral (Acute) Bilateral hand numbness (Acute) Arthritis of carpometacarpal (CMC) joint of right thumb (Acute) Urinary hesitancy (Acute) Past Medical History Medical History Epigastric hernia Tubular adenoma of colon (~2020) Nicotine dependence, cigarettes, uncomplicated Microscopic hematuria Arthritis Asthma Family History Family History Father Heart attack Brother Multiple sclerosis Mother Osteoporosis Surgical History Surgical History History of colonoscopy History of hand surgery Social History Social History Are you a primary insurance healthcare representative to a significant other at home: No Do you presently have visiting nurse or other home services: No Alcohol intake: current Alcohol intake frequency: 0-2 drinks per day Patient Tobacco Use Status: Current everyday Tobacco user Tobacco use type: Cigarette Cigarettes Per Day: 2 Years Smoked: (onset 14yo, 1ppd x 38years - now 1/2 ppd - 35pyh) Use of substances other than those prescribed or required for medical reasons: No Substance Use Frequency: Daily Have you been hit, kicked, punched, or otherwise hurt by someone within the past year? 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 Allergies Allergy/AdvReac Type Severity Reaction Status Date / Time No Known Allergies Allergy Verified 09/02/24 11:50 Home Medications ?Medication ?Instructions ?Recorded ?Confirmed ?Last Taken ?Type albuterol sulfate 90 mcg/actuation 1 puff inhalation QID PRN Wheezing 04/22/21 07/24/24 04/29/21 History aerosol inhaler (ProAir HFA) ibuprofen 800 mg tablet 800 mg PO Q8H 06/24/21 07/24/24 09/02/24 History budesonide-formoterol HFA 80 2 puff inhalation BID 10/10/22 07/24/24 Unknown History mcg-4.5 mcg/actuation aerosol inhaler (Symbicort) diclofenac sodium 1 % topical gel g topical TID PRN pain 10/10/22 07/24/24 Unknown History nicotine 10 mg inhalation 0 mg inhalation 10/10/22 07/24/24 Unknown History cartridge (Nicotrol) amoxicillin 500 mg capsule 500 mg PO Q8H 09/02/24 09/02/24 09/02/24 History Assessment and Plan Assessment Anesthesia Assessment: Chart Reviewed Documented by User: Arti Davies MD 09/02/24 13:13 PMFSH Past Medical History Medical History Epigastric hernia Tubular adenoma of colon (~2020) Nicotine dependence, cigarettes, uncomplicated Microscopic hematuria Arthritis Asthma Family History Family History Father Heart attack Brother Multiple sclerosis Mother Osteoporosis Family history of problems with anesthesia: No Surgical History Surgical History History of colonoscopy History of hand surgery History of Problems with Anesthesia: No Social History Social History Are you a primary insurance healthcare representative to a significant other at home: No Do you presently have visiting nurse or other home services: No Alcohol intake: current Alcohol intake frequency: 0-2 drinks per day Patient Tobacco Use Status: Current everyday Tobacco user Tobacco use type: Cigarette Cigarettes Per Day: 2 Years Smoked: (onset 14yo, 1ppd x 38years - now 1/2 ppd - 35pyh) Use of substances other than those prescribed or required for medical reasons: No Substance Use Frequency: Daily Have you been hit, kicked, punched, or otherwise hurt by someone within the past year? 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 Allergies Allergy/AdvReac Type Severity Reaction Status Date / Time No Known Allergies Allergy Verified 09/02/24 11:50 Home Medications ?Medication ?Instructions ?Recorded ?Confirmed ?Last Taken ?Type albuterol sulfate 90 mcg/actuation 1 puff inhalation QID PRN Wheezing 04/22/21 07/24/24 04/29/21 History aerosol inhaler (ProAir HFA) ibuprofen 800 mg tablet 800 mg PO Q8H 06/24/21 07/24/24 09/02/24 History budesonide-formoterol HFA 80 2 puff inhalation BID 10/10/22 07/24/24 Unknown History mcg-4.5 mcg/actuation aerosol inhaler (Symbicort) diclofenac sodium 1 % topical gel g topical TID PRN pain 10/10/22 07/24/24 Unknown History nicotine 10 mg inhalation 0 mg inhalation 10/10/22 07/24/24 Unknown History cartridge (Nicotrol) amoxicillin 500 mg capsule 500 mg PO Q8H 09/02/24 09/02/24 09/02/24 History Exam Airway Mallampati Class: II TM Dist: >3cm Neck ROM: Full Heart: rrr Lungs: cta Assessment and Plan Assessment Anesthesia Assessment: Anesthesia Plan Discussed and Smoking Cess. Discussed Final Anesthetic Review Family History of Problems with Anesthesia: No History of Problems with Anesthesia: No NPO: Yes ASA Class: III Final Preanesthetic Review: No Changes in Pt Med Stat, Meds/Allgs Chart Reviewed, Consent Obtained/Reviewed and Anes Risks/Benef Reviewed Patient Risk: Intermediate Procedure Risk: Intermediate Anesthetic Plan Anesthetic Plan: GA Disposition: Standard PACU
[2024-08-29 13:28] VITALS: BMI 18.5
[2024-09-02 11:58] VITALS: BP 126/87; PULSE 61; RESP 14; TEMP 36.6; O2SAT 98; BMI 18.6
[2024-09-02] MEDS: Lactated Ringers 1,000 ML 100 ML IVCONT (12:11)
--- NOTE | 2024-09-02 13:10 | MHC.SHP ---
Pre-Procedural Eval Section A - 24 Hr Update-Section A only Date of Service: 09/02/24 Section B - Complete if H&P > 30 days Chief Complaint: Ventral hernia without obstruction or gangrene Details of Present Illness: Has a reducible hernia on the epigastric area, with tenderness and pain, increased in size Relevant Family History (Specify if Yes): No Relevant Social History: Tobacco Use Present Medications: see Short Stay Collaborative assessment Medical History: Significant History (Osteoarthritis nicotine dependence) Allergies: Allergies Allergy/AdvReac Type Severity Reaction Status Date / Time No Known Allergies Allergy Verified 09/02/24 11:50 Review of Systems Sugical H&P ROS: Negative: Constitution, Cardiovascular, Respiratory and Gastrointestinal Exam Surgical H&P Exam: Normal: Heart, Normal: Lungs and Normal: Extremities and Significant Findings: Abdomen (Small epigastric hernia, tender, about 1.5 cm) Plan Diagnosis/Plan: Unchanged I have reviewed the history and physical and performed a pertinent physical examination on my patient. No changes have occurred unless specified. Time Spent With Patient Time: Total time managing care of this patient today ____ minutes.
--- NOTE | 2024-09-02 14:11 | W.PM.OPN ---
Operative Note Operative Note Date of Service: 09/02/24 Narrative: Preop diagnosis: Epigastric hernia reducible Postop diagnosis: The same Procedure: Repair of epigastric hernia Surgeon: Itz Camara MD assistant dean of students: CHERRI Rodriguez The patient is a 54-year-old male with note of reducible mass on the epigastric area. He was describing discomfort and pain with this. This appeared to be a reducible epigastric hernia maybe about 1 cm in diameter. The technique of the planned procedure as was the risks, benefits, and alternatives He was brought to the operating room. He was placed supine under general general anesthesia via laryngeal mask airway. The abdomen was prepped and draped in the usual sterile fashion. A surgical time-out was done. The patient received cefazolin 2 g IV preoperatively I infiltrated the planned line of incision with lidocaine 1%. I made a short incision on the skin transversely with a blade 15. This was carried down through the full-thickness of the skin subcutaneous fat. We gently dissected with Metzenbaum scissors until was able to visualize a hernia. This was fat containing. I sharply dissected the hernia contents down to the fascial defect using Metzenbaum scissors. This allowed me to completely reduce the hernia through the defect. The fascial defect was about point 6 cm in diameter. I therefore did not use a mesh. I closed this defect with a [id number] Maxon 1 stitch Then proceeded to reapposed the subcutaneous layer with Polysorb 3-0 interrupted sutures. Skin closure was achieved with Polysorb 4-0 subcuticular running stitch. Area was then infiltrated with Marcaine 0.5% for postop analgesia. Dressings were applied. The procedure was completed. The patient tolerated the procedure well. There were no immediate complications. There was minimal blood loss. The patient was extubated without difficulty and transferred to the recovery with stable vital signs.
[2024-09-02 14:29] VITALS: BP 90/50; PULSE 50; RESP 14; TEMP 36.2; O2SAT 99
[2024-09-02 14:34] VITALS: BP 111/67; PULSE 58; RESP 16; O2SAT 98
[2024-09-02 14:44] VITALS: BP 107/69; PULSE 49; RESP 17; O2SAT 96
[2024-09-02 15:02] VITALS: BP 117/72; PULSE 51; RESP 16; TEMP 36.1; O2SAT 96
== END 2024-09-02 15:19 | disposition home or self-care (01) ==
PROVIDERS: PCP Registered Nurse; Visit Provider Surgery
PROC: (CPT 49592; principal; 2024-09-02 13:30)
DX: K43.9 Ventral hernia without obstruction or gangrene (principal); Z79.1 Long term (current) use of non-steroidal anti-inflammatories (NSAID); J45.909 Unspecified asthma, uncomplicated; R31.29 Other microscopic hematuria; M19.90 Unspecified osteoarthritis, unspecified site; Z79.899 Other long term (current) drug therapy; F17.210 Nicotine dependence, cigarettes, uncomplicated
CPT/HCPCS: 49592; J0690; J2003; J2704; J2795; J3010

== ENCOUNTER → 2024-09-02 11:11 | Outpatient (BNV) | payer OTHER, SELFPAY | PROVIDERS: PCP Registered Nurse; Visit Provider Surgery | DX: K43.9 Ventral hernia without obstruction or gangrene (principal) | CPT/HCPCS: 49591 ==

== ENCOUNTER 2024-09-18 14:26 | Outpatient (AMB) | payer OTHER, SELFPAY ==
--- NOTE | 2024-09-18 14:26 | MHC.OFFVIS ---
Vital Signs 09/18/24 14:33 Height 5 ft 7 in Weight 115 lb 8 oz BMI 18.1 Intake Visit Reasons: s/p epigastric hernia w/ poss mesh Intake Note: This patient presents for post-op assessment status post Repair of epigastric hernia. Pt c/o; reports he still feels a bulge, reports about one week ago he got a stomach virus-upset stomach, nausea, vomiting and no appetite. Medical Referral Coordinator Required: No Accompanied by: Self / Same As Patient Allergies No Known Allergies Allergy (Verified 09/18/24 14:35) HPI HPI s/p epigastric hernia w/ poss mesh: Details: He had undergone primary repair of a small epigastric hernia last 09/02/2024. He tolerated procedure well. He denies any significant complaints at this time. [facility] Medical History Epigastric hernia Tubular adenoma of colon (~2020) Nicotine dependence, cigarettes, uncomplicated Microscopic hematuria Arthritis Asthma Surgical History History of hernia repair (~09/02/24) History of colonoscopy History of hand surgery Family History Father Heart attack Brother Multiple sclerosis Mother Osteoporosis Social History Are you a primary hospice home care coordinator to a significant other at home: No Do you presently have visiting nurse or other home services: No Alcohol intake: current Alcohol intake frequency: 0-2 drinks per day Patient Tobacco Use Status: Current everyday Tobacco user Tobacco use type: Cigarette Cigarettes Per Day: 2 Years Smoked: (onset 14yo, 1ppd x 38years - now 1/2 ppd - 35pyh) Current occupational status: employed 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 No mesh was used because of the very small size of the hernia He is doing very well. The incisions well healed. I advised him to avoid lifting anything more than 20 lb for about 3 more weeks. He can otherwise follow up on a p.r.n. basis. Coding Level of Care Code Global (81996) Diagnoses Epigastric hernia K43.9
[2024-09-18 14:33] VITALS: BMI 18.1
--- OUTSIDE RECORDS SUMMARY | 2024-09-18 18:22 | XMS_ITS | Patient Health Record ---
Author Organization [facility] Address [address] [place] [address] Care Team Providers Care Extract Puller Name Role Phone Ruma Basilio M.D. Primary Care Provider Rhea Gage Cade Unavailable [phone] ALLERGIES No Known Allergies REASON FOR REFERRAL No Information MEDICATIONS Medication SIG (Take, Route, Frequency, Duration) Notes Start Date End Date Status Dulcolax (colon prep) 5 MG take at 3:00 p.m and 7:00p.m. Orally two tablets twice a day for one day for 1 day 04/05/2021 Active MiraLax 17 GM/SCOOP Take 1 238Gm bottle as directed for the colonoscopy prep instructions Orally Take full bottle of Miralax powder mixed in Gatorade the day before the colonoscopy for 1 days 04/05/2021 Active albuterol Active IMMUNIZATIONS Vaccine Route Administration Date Status Comme nts Influenza Unknown 04/05/2021 Refused SOCIAL HISTORY Tobacco Use: Social History Observation Description Date Details (start date - stop date) Current Smoker NA - NA Sex Assigned At : Social History Observation Description Sex Assigned At Unknown Tobacco Use/Smoking Question Answer Notes Patient is a current smoker How often do you smoke cigarettes? every day How many cigarettes a day do you smoke? 6-10 Alcohol Screen Question Answer Notes Did you have a drink contain ing alcohol in the past year? Yes How often did you have a dri nk containing alcohol in the past year? 4 or more times a week (4 points) How many drinks did you have on a typical day when you were drinking in the past year? 5 or 6 drinks (2 points) Points 6 Interpretation Positive PROBLEMS Problem Type ICD Code Onset Dates Problem Status W/U Status Risk SNOMED Code Notes Problem Encounter for screening for malignant neoplasm of colon (Z12.11) Active confirmed 850501333 Problem Preprocedural examination (Z01.818) Active confirmed 983054728489091 Problem Diverticulosis of sigmoid colon (K57.30) Active confirmed Diverticulosis of sigmoid colon (885186642) PLAN OF TREATMENT Pending Test Test Name Order Date Pathology 04/29/2021 Future Test Test Name Order Date COLONOSCOPY 04/05/2021 Insurance Providers Payer Name Payer Address Payer Phone Subscriber Number Group Number Insured Name Patient Relationship to Insured Coverage Start Date Coverage End Date [facility] [address] [address] [place], [place] [id number] ROSALIND MATIAS Self - patient is the insured MEDICAL (GENERAL) HISTORY Medical History History ICD Code Asthma History of hematuria-sees a Urologist--h e describes a negative cystoscopy Arthritis in his fingers Pneumonia Denies NC,DM,CVA,renal disease Surgical History Surgery Date(Month/Year) Right hand-broken hand and a trigger fin gertrudis
--- OUTSIDE RECORDS SUMMARY | 2024-09-18 18:23 | XMS_ITS | Encounter Summary ---
Author Organization [employer] Address [address] [place] [address] Care Team Providers Care Cement Finisher Helper Name Role Phone Ying Steinberg Primary Care Provider [phone] Tigre Soria MD Unavailable [phone] Encounter Details Date Type Department Care Team (Latest Contact Info) Description 08/29/2024 Travel Social History Tobacco Use Types Packs/Day Years Used Date Smoking Tobacco: Every Day Cigarettes Smokeless Tobacco: Never Comments:1 pack a week. Inte rested in quitting, no Chantix - bad reaction. Alcohol Use Standard Drinks/Week Comments Yes 20 (1 standard drink = 0.6 oz pu re alcohol) Alcohol Answer Date Recorded Q1: How often do you have a drink containing alc ohol? 5 08/29/2024 Q2: How many drinks containi ng alcohol do you have on a typical day when you are drinking? 1 08/29/2024 Q3: How often do you have six or more drinks on one occasion? 2 08/29/2024 Depression Answer Date Recorded Patient Health Questionnaire-9 Score 0 05/23/2024 Patient Health Questionnaire-9 Score 0 05/23/2024 Last PHQ-9: Questionnaire Data Not on file 1 Housing Stability Answer Date Recorded What is your housing situation today? I have paul lawler 05/23/[address] you li ve. Do you have problems with any of the following? None of the above 05/23/2024 Food Insecurity Answer Date Recorded Within the past 12 months, y ou worried that your food would run out before you got money to buy more: Often true 05/23/2024 Within the past 12 months,th e food you bought just didn't last and you didn't have enough money to get more: Often true 11/2023 Transportation Answer Date Recorded In the past 12 months, has l ack of transportation kept you from medical appts, meetings, work or from getting things needed for daily living? No 05/23/2024 Utilities Answer Date Recorded In the past 12 months, has t he electric, gas, oil or water company threatened to shut off services in your home? Yes 05/23/2024 Depression Answer Date Recorded Patient Health Questionnaire-2 Score 0 05/23/2024 Internet Access Answer Date Recorded Internet Access Q1 Yes 05/23/2024 Internet Access Q2 Not on file 05/23/2024 Sex and Gender Information Value Date Recorded Sex Assigned at Male 06/19/2022 10:15 AM EDT Legal Sex Male 10:15 AM EDT Gender Identity Male 06/19/2022 10:15 AM EDT Sexual Orientation Straight 06/19/2022 10 :15 AM EDT documented as of this encounter Plan of Treatment Upcoming Encounters Date Type Department Care Team (Late st Contact Info) Description 10/03/2024 2:30 PM EST Office Visit [facility] [address] [place] [address] Primo Whittaker DDS [address] [place] [address] documented as of this encounter Visit Diagnoses Not on filedocumented in this encounter Additional Health Concerns Assessment Noted Time PHQ-9 Depression Total Score: 0 05/23/20 24 1:06 PM EDT documented as of this encounter Care Teams Cement Finisher Helper Relationship Specialty Start Date End Date Ying Steinberg FNP [address] [place] [address] PCP - General Family Medicine 02/10/22 Tigre Soria MD [address] [place] [address] Urology 07/31/24 documented as of this encounter
--- OUTSIDE RECORDS SUMMARY | 2024-09-18 18:23 | XMS_ITS | Clinical Summary ---
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 Name Role Phone Unavailable Primary Care Provider Unavailabl e Social History Tobacco Use Types Packs/Day Years Used Date Smoking Tobacco: Never Assessed Sex and Gender Information Value Date Recorded Sex Assigned at Not on file Gender Identity Not on file Sexual Orientation Not on file Plan of Treatment Health Maintenance Due Date Last Done Comments DTaP,Tdap,and Td Vaccines (1 - Tdap) 1988 Hepatitis B Vaccines (1 of 3 - 19+ 3-dose series) 1988 Zoster Vaccines (1 of 2) 2019 COVID-19 Vaccine (2023-2 5 season) 2024 Influenza Vaccine (#1) 2024 Cholesterol Screening (Lipid Panel) 05/29/2024 Colorectal Cancer Screening: Colonoscopy 05/29/2024 Depression Screening 05/29/2024 HIV Screening 05/29/2024 Hepatitis C Screening 05/29/2024 Social Influencers of Health Screening 05/29/2024 HIB Vaccines Aged Out No longer eligi ble based on patient's age to complete this topic HPV Vaccines Aged Out No longer eligi ble based on patient's age to complete this topic Hepatitis A Vaccines Aged Out No long er eligible based on patient's age to complete this topic IPV Vaccines Aged Out No longer eligi ble based on patient's age to complete this topic MMR Vaccines Aged Out No longer eligi ble based on patient's age to complete this topic Meningococcal ACWY Vaccine Aged Out N o longer eligible based on patient's age to complete this topic Pneumococcal Vaccine: Pediat rics (0 to 5 Years) and At-Risk Patients (6 to 64 Years) Aged Out No longer eligible b ased on patient's age to complete this topic RSV Immunization Patients Un trista 20 months Aged Out No longer eligible b ased on patient's age to complete this topic Varicella Vaccines Aged Out No longer eligible based on patient's age to complete this topic
--- OUTSIDE RECORDS SUMMARY | 2024-09-18 18:23 | XMS_ITS | Encounter Summary ---
Author Organization [facility] Address [address] [place] [address] Care Team Providers Care County Assessor Name Role Phone Ying Steinberg Primary Care Provider [phone] Tigre Soria MD Unavailable [phone] Encounter Details Date Type Department Care Team (Late st Contact Info) Description 07/06/2023 Abstract [facility] MEDICINE [address] [place] [address] Chasity Jean Social History Tobacco Use Types Packs/Day Years Used Date Smoking Tobacco: Every Day Cigarettes Smokeless Tobacco: Never Comments:1 pack a week. Inte rested in quitting, no Chantix - bad reaction. Alcohol Use Standard Drinks/Week Comments Yes 0 (1 standard drink = 0.6 oz pur e alcohol) Sex and Gender Information Value Date Recorded Sex Assigned at Male 06/19/2022 10:15 AM EDT Legal Sex Male 10:15 AM EDT Gender Identity Male 06/19/2022 10:15 AM EDT Sexual Orientation Straight 06/19/2022 10 :15 AM EDT documented as of this encounter Plan of Treatment Upcoming Encounters Date Type Department Care Team (Late st Contact Info) Description 10/03/2024 2:30 PM EST Office Visit [facility] ADULT DENTAL [address] [place], [place] [id number] Primo Whittaker DDS [address], [place] [id number] documented as of this encounter Visit Diagnoses Not on filedocumented in this encounter Care Teams County Assessor Relationship Specialty Start Date End Date Ying Steinberg FNP [address] [place] [address] PCP - General Family Medicine 02/10/22 Tigre Soria MD [address] [place] [address] Drive [address] [place] [address] Urology 07/31/24 documented as of this encounter
--- OUTSIDE RECORDS SUMMARY | 2024-09-18 18:23 | XMS_ITS | Encounter Summary ---
Author Organization [employer] Address [address] [place] [address] Care Team Providers Care Fitness Technician Name Role Phone Ying Steinberg Primary Care Provider [phone] Tigre Soria MD Unavailable [phone] Reason for Visit * Reason Comments Nicotine Dependence fu Encounter Details Date Type Department Care Team ([facility] st Contact Info) Description 08/29/2024 2:30 PM EST Office Visit [facility] MED & PEDS [address] [place] [address] Ying Steinberg FNP [address] [place] [address] Tobacco dependence syndrome (Primary Dx); Thyroid nodule Social History Tobacco Use Types Packs/Day Years Used Date Smoking Tobacco: Every Day Cigarettes Smokeless Tobacco: Never Tobacco Cessation:Ready to Q uit: Not Asked; Counseling Given: Not Answered Comments:1 pack a week. Interested in quitting, no Chantix - bad reaction. [...] AM EDT documented as of this encounter Last Filed Vital Signs Vital Sign Reading Time Taken Comments Blood Pressure 131/78 08/29/2024 2:24 PM EST Pulse 67 08/29/2024 2:24 PM EST Temperature 36.7 ??C (98 ??F) 08/29/2024 2:24 PM EST Respiratory Rate 18 08/29/2024 2:24 PM EST Oxygen Saturation 99% 08/29/2024 2:24 PM EST Inhaled Oxygen Concentration - - Weight 52.6 kg (116 lb) 08/29/2024 2:24 PM EST Height 160.7 cm (5' 3.25 ) 08/29/2024 2:24 PM ES T Body Mass Index 20.39 08/29/2024 2:24 PM EST documented in this encounter Progress Notes * ALPA Arambula - 08/29/2024 2:30 PM EST Subjective Jey Adame is a 54 y.o. M with past medical history asthma-COPD, hernia, chronic back pain, tobacco use, who presents to the office for follow up visit. Has not yet had TP appt. HPI Last PCP visit: 07/25/24 Tobacco use: Smoking approx 6 cigg/day. Had previously tried and stopped both NRT and chantix due to SE. Interested in smoking cessation efforts. Drinking 2-3 beers/day. Feels like he would be able to cut down. Goal to decrease to 1-2 beers per day. Slowly taper completely. He was started on bupropion last visit for smoking cessation. Today reports that he is currently smoking 1 to 2 cigarettes/day. Has been using bupropion on an as needed instead of scheduled basis, but reports that it has been working well for him. Goal for complete smoking cessation. Specialists: Thoracic: GREGORY Anderson ([facility]) - Lung CA screening Urology: Dr. Soria ([facility]) - microscopic hematuria and urinary hesitancy Social History: Works at [employer] in [place], [place] Review of Systems Constitutional: Negative for activity change, appetite change and fever. Eyes: Negative for visual disturbance. Respiratory: Negative for cough, shortness of breath and wheezing. Cardiovascular: Negative for chest pain and palpitations. Gastrointestinal: Negative for constipation, diarrhea and vomiting. Visit Vitals BP 131/78 (BP Location: Left arm, Patient Position: Sitting, BP Cuff Size: Adult) Pulse 67 Temp 98 ??F (36.7 ??C) (Oral) Resp 18 Ht 5' 3.25 (1.607 m) Wt 116 lb (52.6 kg) SpO2 99% BMI 20.39 kg/m?? Smoking Status Every Day BSA 1.53 m?? Physical Exam Vitals reviewed. Constitutional: Appearance: Normal appearance. HENT: Head: Atraumatic. Right Ear: External ear normal. Left Ear: External ear normal. Cardiovascular: Rate and Rhythm: Normal rate and regular rhythm. Pulmonary: Effort: Pulmonary effort is normal. Breath sounds: Normal breath sounds. Neurological: Mental Status: He is alert and oriented to person, place, and time. Psychiatric: Mood and Affect: Mood normal. Behavior: Behavior normal. Problem List Items Addressed This Visit Other Tobacco dependence syndrome - Primary Overview -Cigg/day: 1-2 cigg/day -Pack year history: > 20 -Lung CA screening: established with [facility] Thoracic for LDCT ([place] December) LDCT: LungRADS 1 on 02/29/24. Follow up 1 year. - Encouraged smoking cessation resources such as pharmacomtherapy, [facility] smoking cessation group, [facility] pharmacy smoking cessation clinic Current Assessment & Plan -Congratulated on improvements in smoking cessation efforts! -Continue with bupropion -Follow-up as needed Follow up: 3 months, sooner as needed. documented in this encounter Miscellaneous Notes * Assessment & Plan Note - ALPA Arambula - 08/29/2024 8:15 PM ESTAssociated Problem(s): Tobacco dependence syndrome -Congratulated on improvements in smoking cessation efforts -Continue with bupropion -Follow-up as needed documented in this encounter Plan of Treatment Upcoming Encounters Date Type Department Care Team (Late st Contact Info) Description 10/03/2024 2:30 PM EST Office Visit [facility] ADULT DENTAL [address] [place] [address] Primo Whittaker DDS [address] [place] [address] documented as of this encounter Visit Diagnoses Diagnosis Tobacco dependence syndrome- Primary Tobacco use disorder Thyroid nodule Nontoxic uninodular goiter documented in this encounter Additional Health Concerns Assessment Noted Time PHQ-9 Depression Total Score: 0 05/23/20 24 1:06 PM EDT documented as of this encounter Care Teams Fitness Technician Relationship Specialty Start Date End Date Ying Steinberg FNP [address] [place] [address] PCP - General Family Medicine 02/10/22 Tigre Soria MD [address] [place] [address] Urology 07/31/24 documented as of this encounter
--- OUTSIDE RECORDS SUMMARY | 2024-09-18 18:23 | XMS_ITS | Encounter Summary ---
Author Organization [employer] Address [address] [place] [address] Care Team Providers Care Section Beamer Name Role Phone Ying Steinberg Primary Care Provider [phone] Tigre Soria MD Unavailable [phone] Reason for Visit * Reason Onset Date Comments Triage 01/08/2023 Encounter Details Date Type Department Care Team ([facility] st Contact Info) Description 01/08/2023 Telephone [facility] MEDICINE [address] [place] [address] Ying Steinberg FNP [address] [place] [address] Triage Social History Tobacco Use Types Packs/Day Years Used Date Smoking Tobacco: Every Day Cigarettes Smokeless Tobacco: Never Comments:1 pack a week. Inte rested in quitting, no Chantix - bad reaction. Alcohol Use Standard Drinks/Week Comments Yes 0 (1 standard drink = 0.6 oz pur e alcohol) Alcohol Answer Date Recorded Q1: How [...] Orientation Straight 06/19/2022 10 :15 AM EDT COVID-19 Exposure Response Date Recorded In the last 10 days, have yo u been in contact with someone who was confirmed or suspected to have Coronavirus/COVID-19? No / Unsure 01/08/2023 12:30 PM EDT documented as of this encounter Miscellaneous Notes * Telephone Encounter - Renetta Mcghee RN - 01/08/2023 11:27 AM EDT Triage call Pt reports low back pain started 01/06 with back spasms. Pt reports , I probably did something to cause this but, I didn't know it at the time . Pt reports pain with bending, laying down and any position . Pt reports difficulty getting out of bed and didn't get to work today. Pt reports muscle relaxers are helpful but, doesn't have this prescription any more. Pt denies numbness, neg f or radiation of pain to leg. Pt is advised to come to be seen in [facility] today to be seen by provider and obtain excuse for absence from work. Pt agrees with disposition and home care reviewed. Protocol Used: Back Pain (Adult) Protocol-Based Disposition: See in Office or Video Visit Today Video visit not offered Positive Triage Question: * Severe back pain (e.g., excruciating, unable to do any normal activities) and not improved after pain medicine and Care Advice * All higher-acuity triage questions were negative Care Advice Discussed: * Reassurance and Education - Back Pain * Cold or Heat * Sleep * Activity * Pain Medicines * Pain Medicines - Extra Notes and Warnings * Reasons To Call Back - Fever occurs - Numbness or weakness occurs, or bowel/bladder problems - Pain begins to shoot into the leg - Pain persists over 2 weeks - Pain becomes worse - You become worse * Use a Cold Pack for Pain * Use Heat After 48 Hours for Pain * Telephone Encounter - Presley Coleman - 01/08/2023 11:03 AM EDT Symptom: Back Injury Outcome: Transfer to a nurse or provider NOW! Reason: Can't walk, Hip pain The caller accepted this outcome Please contact at [phone] documented in this encounter Plan of Treatment Upcoming Encounters Date Type Department Care Team (Late st Contact Info) Description 10/03/2024 2:30 PM EST Office Visit [facility] ADULT DENTAL [address] [place] [address] Primo Whittaker DDS [address] [place] [address] documented as of this encounter Visit Diagnoses Not on filedocumented in this encounter Care Teams Section Beamer Relationship Specialty Start Date End Date Ying Steinberg FNP [address] [place] [address] PCP - General Family Medicine 02/10/22 Tigre Soria MD [address] [place] [address] Drive [address] [place] [address] Urology 07/31/24 documented as of this encounter
--- OUTSIDE RECORDS SUMMARY | 2024-09-18 18:23 | XMS_ITS | Clinical Summary ---
Author Organization [employer] Address [address] [facility] 7t [place] [address] Care Team Providers Care Crowning Inspector Name Role Phone Ying Steinberg Primary Care Provider [phone] Tigre Soria MD Unavailable [phone] Allergies No known active allergies Medications finasteride (Proscar) 5 MG tablet Take 5 mg by mouth in the morning. 2 Active Diclofenac Sodium (Voltaren) 1 % gelIndications:H and arthritis Apply to hands topically 3 times daily as needed for pain 50 g 1 3 Active cyclobenzaprine (Flexeril) 10 MG tabletIndication s:Acute midline low back pain without sciatica Take 1 tablet (10 mg) by mouth 3 times daily for 10 days. 30 tablet 3 Active econazole nitrate 1 % creamIndications :Rash Apply topically 2 times daily. 1-3 weeks to affected area. 30 g 1 4 05/23/20 25 Active albuterol 108 (90 Base) MCG/ACT inhalerIndicatio ns:Asthma-COPD overlap syndrome (CMS/HCC) Inhale 2 puffs Every 4-6 hours as needed for wheezing. 18 g 3 4 Active tiotropium (Spiriva Respimat) 2.5 MCG/ACT inhalerIndicatio ns:Asthma-COPD overlap syndrome (CMS/HCC) Inhale 2 puffs Once per day. 1 each 11 4 05/23/20 25 Active Blood Pressure kitIndications:E levated blood pressure reading Use to check Blood Pressure once daily 1 kit 4 Active pantoprazole (Protonix) 20 MG EC tabletIndication s:Gastroesophage al reflux disease, unspecified whether esophagitis present Take by mouth once daily 30 minutes before a meal. 90 tablet 1 4 Active buPROPion SR (Wellbutrin SR) 150 MG 12 hr tabletIndication s:Tobacco dependence syndrome Take 1 tablet by mouth x 3 days THEN one tablet by mouth twice daily. Do not crush, chew, or split. 60 tablet 2 4 Active acetaminophen (Tylenol) 500 MG tablet Take 1 tablet (500 mg) by mouth every 6 (six) hours if needed for mild pain for up to 20 doses. 20 tablet 4 Active ibuprofen 600 MG tablet Take 1 tablet (600 mg) by mouth every 6 (six) hours if needed for mild pain for up to 20 doses. 20 tablet 4 Active Active Problems Problem Noted Date Diagnosed Date Dental abscess 08/06/2024 Dental caries extending into pulp 08/06/2024 Diverticulosis of sigmoid colon 05/25/2024 Thyroid nodule 05/25/2024 Overview (08/29/2024): Incidental finding of suspected 1.3cm superior right thyroid nodule during LDCT in February 2024 Repeat thyroid ultrasound May 2024: No suspicious thyroid nodule appreciated Abdominal wall bulge 05/25/2024 Overview (07/31/2024): Reducible abdominal wall bulge superior to umbilicus LDCT February 2024 w/ incidental finding of small type 1 hiatal hernia suspected. US completed Jun 2024 confirmed small abdominal wall hernia Consult with [facility] Surgery in Jul 2024 - plan for hernia repair with possible mesh placement Gastroesophageal reflux disease 05/25/2024 Overview (05/25/2024): Reviewed lifestyle interventions to decrease symptoms including avoid triggering foods (such as coffee, chocolate, fatty foods), tobacco cessation, eating 2-3 hours before lying down, and weight loss. - February 2024 - LDCT suggestive of esophagitis (may consider EGD) - Medications: pantoprazole 20mg daily Assessment & Plan (05/25/2024 5:47 PM EDT): Started on PPI daily. Reviewed med use and SE Has not yet had TP appt, but may benefit from discussion of GI referral for EGD Asthma-COPD overlap syndrome 09/15/2022 Overview (07/31/2024): PFTS completed 07/28/22 c/w mild bronchial asthma PFTs completed 07/03/24 c/w mild obstructive disorder, however FEV1 and FVC were above 100% predicted LDCT February 2024 demonstrated mild emphysema and mild small airway thickening that may suggest chronic bronchitis Strongly encouraged smoking cessation Maintenance: Spiriva 2 puffs daily Rescue: albuterol PRN Assessment & Plan (07/31/2024 6:14 PM EST): Well controlled with current regimen Assessment & Plan (05/25/2024 5:44 PM EDT): Reviewed med use and SE Follow up in 1 month to review response Assessment & Plan (09/15/2022 3:03 PM EST): -START symbicort 2 puffs BID, reviewed meds safety and rinse after use -May continue albuterol PRN if desired, but also discussed controller/rescue monotherapy for symbicort Follow up in 1 month, sooner as needed. Pt in agreement with plan. Vitamin D deficiency 01/21/2019 Generalized osteoarthritis of hand 05/17/2012 Overview (09/15/2022): -History of ?inflammatory arthritis from [facility] Rhuem -Heberden's nodes on multiple fingers, tenderness to palpation -Patient with pain and discomfort Assessment & Plan (09/15/2022 3:00 PM EST): -Trial of topical voltaren gel -Given wait times for initial consult with rheum, will initiate with referral to [facility] Ortho Hand specialist for further eval -patient in agreement with plan Shoulder pain 05/17/2012 Chronic back pain 04/12/2012 Assessment & Plan (09/15/2022 3:01 PM EST): -Referral to PT for further eval and tx -Symptomatic management encouraged Microscopic hematuria 04/12/2012 Overview (05/25/2024): -Following with Dr. Soria [facility] Urology -Continues with finasteride 5mg daily -Cytology 07/10 negative -Imaging 07/10 CT Urogram no evidence of filling defects -Risk factors: smoking cigarettes Tobacco dependence syndrome 04/12/2012 Overview (08/29/2024): -Cigg/day: 1-2 cigg/day -Pack year history: > 20 -Lung CA screening: established with [facility] Thoracic for LDCT (December) LDCT: LungRADS 1 on 02/29/24. Follow up 1 year. - Encouraged smoking cessation resources such as pharmacomtherapy, [facility] smoking cessation group, and [facility] pharmacy smoking cessation clinic Assessment & Plan (08/29/2024 8:15 PM EST): -Congratulated on improvements in smoking cessation efforts -Continue with bupropion -Follow-up as needed Assessment & Plan (07/31/2024 6:16 PM EST): -Has used NRT and Chantix in the past w/o response and/or SE -Plan: START bupropion. Reviewed med safety and SE Assessment & Plan (09/15/2022 3:05 PM EST): -Smoking cessation and benefits for asthma reviewed -Information about smoking cessation clinic provided -START NRT patches and inhaler, reviewed med use and safety. -Hydrocortisone 1% PRN for irritation with patches Follow up in 1 month, sooner as needed. Resolved Problems Problem Noted Date Diagnosed Date Resolved Date Abnormal thyroid blood test 01/21/2019 09/15/2022 Encounters Date Type Department Care Team Description 08/29/2024 2:30 PM EST Office Visit [facility] [address] [place] [address] Ying Steinberg FNP Tobacco dependence syndrome (Primary Dx); Thyroid nodule 08/29/2024 Travel 08/25/2024 Telephone [facility] [address] [place] [address] Landen Trotter MA Chart Prep 08/08/2024 Telephone [facility] MEDICINE [address] [place] [address] Ying Steinberg FNP Results 08/06/2024 1:00 PM EST Office Visit [facility] ADULT DENTAL [address] [place] [address] Primo Whittaker DDS Dental abscess (Primary Dx); Dental caries extending into pulp 07/25/2024 1:45 PM EST Office Visit [facility] [address] [place], [place] [phone] Ying Steinberg FNP Asthma-COPD overlap syndrome (CMS/HCC) (Primary Dx); Tobacco dependence syndrome; Alcohol use; Abdominal wall bulge 07/25/2024 Travel 07/24/2024 Telephone [facility] [address] [place], [place] [phone] Landen Trotter MA Chart Prep 07/10/2024 Telephone [facility] [address] [place] [address] Ying Steinberg FNP 07/09/2024 Telephone [facility] [address] [place], [place] [phone] Ying Steinberg FNP from Last 3 Months Immunizations Name Administration Dates Next Due Hep B, adult 12/09/2008,07/21/2008,06/17/2008 Efren SARS-CoV-2 Vaccination 11/27/2020 MMR 01/24/2008 TD (adult), 2 Lf tetanus tox oid, preservative free, adsorbed 01/24/2008 Tdap 01/14/2021 Varicella 01/25/2008 Social History Tobacco Use Types Packs/Day Years [...] Orientation Straight 06/19/2022 10 :15 AM EDT Last Filed Vital Signs Vital Sign Reading [...] Mass Index 20.39 08/29/2024 2:24 PM EST Plan of Treatment Upcoming Encounters Date Type Department Care Team (Late st Contact Info) Description 10/03/2024 2:30 PM EST Office Visit [facility] ADULT DENTAL [address] [place], [place] [phone] Primo Whittaker, DDS [address] [place] [address] Health Maintenance Due Date Last Done Comments CT Colonography 1969 Dental Prophylaxis 1969 FIT DNA/Cologuard 1969 FIT 1969 FOBT 1969 Sigmoidoscopy 1969 Pneumococcal Vaccine: Pediatrics (0 to 5 Years) and At-Risk Patients (6 to 49) Years) (1 of 2 - PCV) 1975 Hepatitis A Vaccines (1 of 2 - Risk 2-dose series) 1988 Pneumococcal Vaccine: 50+ Years (1 of 2 - PCV) 1988 Zoster Vaccines (1 of 2) 2019 Dental Oral Exam 04/08/2021 10/08/2020 Dental X-Ray: Bitewings 10/09/2021 10/08/2020 Dental X-Ray: Full Mouth 10/09/2023 021, 11/07/2016 Influenza Vaccine (#1) 2025 Postp oned from 04/20/2024 (Patient Refused) Depression Screening 05/23/2025 05/23/2024, 05/23/2024 SDOH Screening 05/23/2025 05/23/2024 COVID-19 Vaccine (2 - 2023-2 5 season) 2025 11/27/2020 Postponed from 04/20 (Patient Refused) Alcohol/Substance Use Screening 08/29/2025 08/29/2024 Tobacco Screening 08/29/2025 08/29/2024 Colonoscopy 04/29/2026 04/29/2021 Colorectal Cancer Screening 04/29/2026 Lipid Panel 06/30/2027 06/30/2022 DTaP/Tdap/Td Vaccines (2 - T d or Tdap) 01/14/2031 01/14/2021, 01/24/2008 RSV Patients and Patients Aged 60 years or older (1 - 1-dose 75+ series) 2044 Hepatitis B Vaccines Completed 12/09/2008, 07/21/2008, 06/17/2008 HIV Screening Completed 06/30/2022 Hepatitis C Screening Completed 06/30/2022 HIB Vaccines Aged Out No longer eligi ble based on patient's age to complete this topic HPV Vaccines Aged Out No longer eligi ble based on patient's age to complete this topic IPV Vaccines Aged Out No longer eligi ble based on patient's age to complete this topic Meningococcal Vaccine Aged Out No sriram gertrudis eligible based on patient's age to complete this topic RSV under 20 months Aged Out No longe r eligible based on patient's age to complete this topic Rotavirus Vaccines Aged Out No longer eligible based on patient's age to complete this topic Procedures Procedure Name Priority Date/Time Associated Diagnosis Comments ADJUNCTIVE GENERAL SERVICES - PROFESSIONAL VISITS - CASE PRESENTATION, SUBSEQUENT TO DETAILED AND EXTENSIVE TREATMENT PLANNING Routine 08/06/2024 1:00 PM EST INTRAORAL - PERIAPICAL FIRST RADIOGRAPHIC IMAGE Routine 08/06/2024 1:00 PM EST ADJUNCTIVE GENERAL SERVICES - UNCLASSIFIED TREATMENT - PALLIATIVE TREATMENT OF DENTAL PAIN - PER VISIT Routine 08/06/2024 1:00 PM EST ZZZ HISTORICAL HEPATITIS C AB W/REFL TO HCV RNA, QN, PCR Routine 06/30/2022 11:17 AM EST HIV 1/2 ANTIGEN/ANTIBODY, FOURTH GENERATION W/RFL Routine 06/30/2022 11:17 AM EST LIPID PANEL, STANDARD Routine 06/30/2022 11:17 AM EST HM COLONOSCOPY Routine 04/29/2021 DIAGNOSTIC - DIAGNOSTIC IMAGING - INTRAORAL - COMPREHENSIVE SERIES OF RADIOGRAPHIC IMAGES Routine 10/08/2020 12:00 AM EST COMPREHENSIVE ORAL EVALUATION - NEW OR ESTABLISHED PATIENT Routine 10/08/2020 12:00 AM EST from Last 3 Months or Most Recently Relevant to Health Maintenance Results * HEPATITIS C AB W/REFL TO HCV RNA, QN, PCR (06/30/2022 11:17 AM EST) HEPATITIS C ANTIBODY NON-REACTI VE NON-REACT KALIA CONVERTED LEGACY LABS INDEX 0.03 <1.00 CONVERTED LEGACY LABS Comment: ?? HCV antibody was non-reactive. There is no laboratory ?? evidence of HCV infection. ?? In most cases, no further action is required. However, if recent HCV exposure is suspected, a test for HCV RNA (test code 96364) is suggested. ?? For additional information please refer to http://[employer]ible (formerly gradsavers)/faq/UCQ70i8 (This link is being provided for informational/ educational purposes only.) ?? 06/30/2022 11:1 7 AM EST Ying Steinberg [facility] HISTORICAL/NON ORDERABLE LABS Final Result CONVERTED LEGACY LABS * HIV 1/2 ANTIGEN/ANTIBODY,FOURTH GENERATION W/RFL (06/30/2022 11:17 AM EST) HIV-1/2 ANTIGEN AND ANTIBODIES, 4TH GENERATION W/ REFLEX NON-REACT KALIA NON-REACT KALIA CONVERTED LEGACY LABS Comment: HIV-1 antigen and HIV-1/HIV-2 antibodies were not detected. There is no laboratory evidence of HIV infection. ?? PLEASE NOTE: This information has been disclosed to you from records whose confidentiality may be protected by state law. ??If your state requires such protection, then the state law prohibits you from making any further disclosure of the information without the specific written consent of the person to whom it pertains, or as otherwise permitted by law. A general authorization for the release of medical or other information is NOT sufficient for this purpose. ? For additional information please refer to http://[employer] (formerly gradsavers)/faq/YGA535 (This link is being provided for informational/ educational purposes only.) ? The performance of this assay has not been clinically validated in patients less than 2 years old. ?? 06/30/2022 11:1 7 AM EST Ying Steinberg DIRECTOR OF CULTURE LAB BLOOD ORDERABLES Final Res ult CONVERTED LEGACY LABS * (ABNORMAL) LIPID PANEL, STANDARD (06/30/2022 11:17 AM EST) Chol/HDLC Ratio 3.5 <5.0 (calc) CONVERTED LEGACY LABS Cholesterol, Total 174 <200 mg/dL CONVERTED LEGACY LABS HDL Cholesterol 50 > OR = 40 mg/dL CONVERTED LEGACY LABS LDL Cholesterol 108(H) mg/dL (calc) CONVERTED LEGACY LABS Comment: Reference range: <100 ?? Desirable range <100 mg/dL for primary prevention; ?? <70 mg/dL for patients with CHD or diabetic patients ?? with > or = 2 CHD risk factors. ?? LDL-C is now calculated using the Kathy ?? calculation, which is a validated novel method providing ?? better accuracy than the Friedewald equation in the ?? estimation of LDL-C. ?? Mikhail MARCH et al. BAYLEE. 2013;310(19): 2496-8981 ?? (http://education.[employer].com/faq/TKI629) Non-HDL Cholesterol 124 <130 mg/dL (calc) CONVERTED LEGACY LABS Comment: For patients with diabetes plus 1 major ASCVD risk ?? factor, treating to a non-HDL-C goal of <100 mg/dL ?? (LDL-C of <70 mg/dL) is considered a therapeutic ?? option. Triglycerides 71 <150 mg/dL CONVE RTED LEGACY LABS 06/30/2022 11:1 7 AM EST Ying Steinberg DIRECTOR OF CULTURE LAB BLOOD ORDERABLES Final Res ult CONVERTED LEGACY LABS * Hm Colonoscopy (04/29/2021) Colonoscopy normal Comment:Colon CA Screen F/U 5 Yrs(small colon polyp. +family hx) Historical Provider HEALTH MAINTENANCE Edited Result - Final from Last 3 Months or Most Recently Relevant to Health Maintenance Insurance [facility] MEDICAID STAND ADULT Care Teams Crowning Inspector Relationship Specialty Start Date End Date Ying Stienberg FNP [address] [place] [address] PCP - General Family Medicine 02/10/22 Tigre Soria MD [address] [place] [address] Drive [address] [place] [address] Urology 07/31/24
--- OUTSIDE RECORDS SUMMARY | 2024-09-18 18:23 | XMS_ITS | Encounter Summary ---
Author Organization [employer] Address [address] [facility] 7[address] [place] [address] Care Team Providers Care Parking Garage Manager Name Role Phone Ying Steinberg Primary Care Provider [phone] Tigre Soria MD Unavailable [phone] Reason for Visit * Reason Onset Date Comments Chart Prep 08/25/2024 Encounter Details Date Type Department Care Team (Late st Contact Info) Description 08/25/2024 Telephone [facility] [address] [place] [address] Landen Trotter MA Chart Prep Social History Tobacco Use Types Packs/Day Years Used Date Smoking Tobacco: Every Day Cigarettes Smokeless Tobacco: Never Comments:1 pack a week. Inte rested in quitting, no Chantix - bad reaction. Alcohol Use Standard Drinks/Week Comments Yes 0 (1 standard drink = 0.6 oz pur e alcohol) Depression Answer Date Recorded Patient Health Questionnaire-9 [...] AM EDT documented as of this encounter Miscellaneous Notes * Telephone Encounter - Landen Carreon MA - 08/25/2024 10:49 AM EST Chart Prep Labs: done Images: done Vaccines due: yes Referrals: complete Screenings: n/a Overdue care gaps: Sbirt documented in this encounter Plan of Treatment Upcoming Encounters Date Type Department Care Team (Late st Contact Info) Description 10/03/2024 2:30 PM EST Office Visit [facility] ADULT DENTAL [address] [place] [address] Primo Whittaker DDS [address] [place] [address] documented as of this encounter Visit Diagnoses Not on filedocumented in this encounter Additional Health Concerns Assessment Noted Time PHQ-9 Depression Total Score: 0 05/23/20 24 1:06 PM EDT documented as of this encounter Care Teams Parking Garage Manager Relationship Specialty Start Date End Date Ying Steinberg FNP [address] [place] [address] PCP - General Family Medicine 02/10/22 Tigre Soria MD [address] [place] [address] Drive [address] [place] [address] Urology 07/31/24 documented as of this encounter
== END 2024-09-18 14:36 | disposition home or self-care (01) ==
PROVIDERS: PCP Registered Nurse; Visit Provider Surgery
DX: K43.9 Ventral hernia without obstruction or gangrene (principal)
CPT/HCPCS: 99212

== ENCOUNTER → 2024-09-18 14:26 | Outpatient (BNVA) | payer OTHER, SELFPAY | PROVIDERS: PCP Registered Nurse; Visit Provider Surgery | DX: Z48.815 Encounter for surgical aftercare following surgery on the digestive system (principal); Z98.890 Other specified postprocedural states | CPT/HCPCS: 99212 ==

== ENCOUNTER 2024-09-26 10:53 | Outpatient (REF) | payer OTHER, SELFPAY ==
--- OUTSIDE RECORDS SUMMARY | 2024-09-26 13:48 | XMS_ITS | Encounter Summary ---
Author Organization [employer] Address [address] [facility] 7t [place] [address] Care Team Providers Care Flatwork Presser Name Role Phone Ying Steinberg Primary Care Provider [phone] Tigre Soria MD Unavailable [phone] Reason for Visit * Reason Comments Nicotine Dependence fu Encounter Details Date Type Department Care Team ([facility] st Contact Info) Description 08/29/2024 2:30 PM EST [facility] [address] [place] [address] Ying Steinberg FNP [address] [place] [address] Tobacco dependence syndrome (Primary Dx); Thyroid nodule [...] complete smoking cessation. Specialists: Thoracic: GREGORY Anderson ([facility]) - Lung CA screening Urology: Dr. Soria ([facility]) - microscopic hematuria and urinary hesitancy Social History: Works at [employer] in [place], [place] Review of Systems Constitutional: Negative for [...] > 20 -Lung CA screening: established with [facility] Thoracic for LDCT ([place] December) LDCT: LungRADS 1 on 02/29/24. Follow up 1 year. - Encouraged smoking cessation resources such as pharmacomtherapy, [facility] smoking cessation group, [facility] pharmacy smoking cessation clinic Current Assessment & [...] Description 10/03/2024 2:30 PM EST Office Visit [facility] ADULT DENTAL [address] [place] [address] Primo Whittaker DDS [address] [place] [address] documented as of this encounter Visit Diagnoses Diagnosis Tobacco dependence syndrome- Primary Tobacco use disorder Thyroid nodule Nontoxic uninodular goiter documented in this encounter Additional Health Concerns Assessment Noted Time PHQ-9 Depression Total Score: 0 05/23/20 24 1:06 PM EDT documented as of this encounter Care Teams Flatwork Presser Relationship Specialty Start Date End Date Ying Steinberg FNP [address] [place] [address] PCP - General Family Medicine 02/10/22 Tigre Soria MD [address] [place] [address] Urology 07/31/24 documented as of this encounter
--- OUTSIDE RECORDS SUMMARY | 2024-09-26 13:48 | XMS_ITS | Clinical Summary ---
Author Organization [employer] [facility] Address [address] [place] [address] Care Team Providers Care Embedded Linux Developer Name Role Phone Unavailable Primary Care Provider [...]
--- OUTSIDE RECORDS SUMMARY | 2024-09-26 13:48 | XMS_ITS | Encounter Summary ---
Author Organization [employer] Address [address] [facility] 7[address] [place] [address] Care Team Providers Care Classifier Operator Name Role Phone Ying Steinberg Primary Care Provider [phone] Tigre Soria MD Unavailable [phone] Reason for Visit * Reason Onset Date Comments Triage 01/08/2023 Encounter Details Date Type Department Care Team ([facility] st Contact Info) Description 01/08/2023 Telephone [facility] MEDICINE [address] [place] [address] Ying Steinberg FNP [address] [place] [address] Triage Social History Tobacco Use Types Packs/Day [...] to come to be seen in [facility] today to be seen by provider [...] caller accepted this outcome Please contact at [phone] documented in this encounter Plan of Treatment Upcoming Encounters Date Type Department Care Team (Late st Contact Info) Description 10/03/2024 2:30 PM EST Office Visit [facility] ADULT DENTAL [address] [place] [address] Primo Whittaker DDS [address] [place] [address] documented as of this encounter Visit Diagnoses Not on filedocumented in this encounter Care Teams Classifier Operator Relationship Specialty Start Date End Date Ying Steinberg FNP [address] [place] [address] PCP - General Family Medicine 02/10/22 Tigre Soria MD [address] [place] [address] Drive [address] [place] [address] Urology 07/31/24 documented as of this encounter
--- OUTSIDE RECORDS SUMMARY | 2024-09-26 13:48 | XMS_ITS | Encounter Summary ---
Author Organization [employer] [facility] Address [address] [facility] [address] [place] [address] Care Team Providers Care Leather Goods Ii Assembler Name Role Phone Ying Steinberg Primary Care Provider [phone] Tigre Soria MD Unavailable [phone] Encounter Details Date Type Department Care Team (Late st Contact Info) Description 07/06/2023 Abstract [facility] MED[facility] [address] [place] [address] Chasity Jean Social History Tobacco Use Types [...] Description 10/03/2024 2:30 PM EST Office Visit [facility] ADULT DENTAL [address] [place], [place] [phone] Primo Whittaker DDS [address] [place], [place] [phone] documented as of this encounter Visit Diagnoses Not on filedocumented in this encounter Care Teams Leather Goods Ii Assembler Relationship Specialty Start Date End Date Ying Steinberg FNP [address] [place] [address] PCP - General Family Medicine 02/10/22 Tigre Soria MD [address] [place] [address] Drive [address] [place] [address] Urology 07/31/24 documented as of this encounter
--- OUTSIDE RECORDS SUMMARY | 2024-09-26 13:48 | XMS_ITS | Encounter Summary ---
Author Organization [employer] Address [address] [facility] [address] [place] [address] Care Team Providers Care Speech Correction Consultant Name Role Phone Ying Steinberg Primary Care Provider [phone] Tigre Soria MD Unavailable [phone] Encounter Details Date Type Department Care [...] 10/03/2024 2:30 PM EST Office Visit [facility] ADULT DENTAL [address] [place] [address] Primo Whittaker DDS [address] [place] [address] documented as of this encounter Visit Diagnoses Not on filedocumented in this encounter Additional Health Concerns Assessment Noted Time PHQ-9 Depression Total Score: 0 05/23/20 24 1:06 PM EDT documented as of this encounter Care Teams Speech Correction Consultant Relationship Specialty Start Date End Date Ying Steinberg FNP [address] [place] [address] PCP - General Family Medicine 02/10/22 Tigre Soria MD [address] [place] [address] Urology 07/31/24 documented as of this encounter
--- OUTSIDE RECORDS SUMMARY | 2024-09-26 13:48 | XMS_ITS | Clinical Summary ---
Author Organization [employer] Address [address] [facility] [address] [place] [address] Care Team Providers Care Materials Management Manager Name Role Phone Ying Steinberg Primary Care Provider [phone] Tigre Soria MD Unavailable [phone] Allergies No known active allergies Medications [...] confirmed small abdominal wall hernia Consult with [facility] Surgery in Jul 2024 - plan for [...] Overview (09/15/2022): -History of ?inflammatory arthritis from [facility] Rhuem -Heberden's nodes on multiple fingers, tenderness to palpation -Patient with pain and discomfort Assessment & Plan (09/15/2022 3:00 PM EST): -Trial of topical voltaren gel -Given wait times for initial consult with rheum, will initiate with referral to [facility] Ortho Hand specialist for further eval -patient in agreement with plan Shoulder pain 05/17/2012 Chronic back pain 04/12/2012 Assessment & Plan (09/15/2022 3:01 PM EST): -Referral to PT for further eval and tx -Symptomatic management encouraged Microscopic hematuria 04/12/2012 Overview (05/25/2024): -Following with Dr. Soria [facility] Urology -Continues with finasteride 5mg daily -Cytology 07/10 negative -Imaging 07/10 CT Urogram no evidence of filling defects -Risk factors: smoking cigarettes Tobacco dependence syndrome 04/12/2012 Overview (08/29/2024): -Cigg/day: 1-2 cigg/day -Pack year history: > 20 -Lung CA screening: established with [facility] Thoracic for LDCT (December) LDCT: LungRADS 1 on 02/29/24. Follow up 1 year. - Encouraged smoking cessation resources such as pharmacomtherapy, [facility] smoking cessation group, and [facility] pharmacy smoking cessation clinic Assessment & Plan [...] Description 08/29/2024 2:30 PM EST Office Visit [facility] [address] [place] [address] Ying Steinberg FNP Tobacco dependence syndrome (Primary Dx); Thyroid nodule 08/29/2024 Travel 08/25/2024 Telephone [facility] [address] [place] [address] Landen Trotter [place] Chart Prep 08/08/2024 Telephone [facility] MEDICINE [address] [place] [address] Ying Steinberg FNP Results 08/06/2024 1:00 PM EST Office Visit [facility] ADULT DENTAL [address] [place] [address] Primo Whittaker DDS Dental abscess (Primary Dx); Dental caries extending into pulp 07/25/2024 1:45 PM EST Office Visit [facility] [address] [place], [place] [phone] Ying Steinberg FNP Asthma-COPD overlap syndrome (CMS/HCC) (Primary Dx); Tobacco dependence syndrome; Alcohol use; Abdominal wall bulge 07/25/2024 Travel 07/24/2024 Telephone [facility] [address] [place], [place] [phone] Landen Trotter [place] Chart Prep 07/10/2024 Telephone [facility] [address] [place] [address] Ying Steinberg FNP 07/09/2024 Telephone [facility] [address], [place] [phone] Ying Steinberg FNP from Last 3 Months [...] Description 10/03/2024 2:30 PM EST Office Visit [facility] ADULT DENTAL [address], [place] [phone] Primo Whittaker, DDS [address] [place] [address] Health Maintenance Due Date Last Done Comments CT Colonography 1969 Dental Prophylaxis 1969 FIT DNA/Cologuard 1969 FIT 1969 FOBT 1969 Sigmoidoscopy 1969 Hepatitis A Vaccines (1 of 2 - [...] a test for HCV RNA (test code 69787) is suggested. ?? For additional information please refer to http://[employer].Cervalis/faq/TOO56i8 (This link is being provided for informational/ educational purposes only.) ?? 06/30/2022 11:1 7 AM EST us Ying YUEN HISTORICAL/NON ORDERABLE LABS Final Result CONVERTED LEGACY [...] ? For additional information please refer to http://[employer].Cervalis/faq/ADS142 (This link is being provided for informational/ educational purposes only.) ? The performance of this assay has not been clinically validated in patients less than 2 years old. ?? 06/30/2022 11:1 7 AM EST us Ying Steinberg CREW PERSON LAB BLOOD ORDERABLES Final Res ult CONVERTED [...] ?? Mikhail MARCH et al. BAYLEE. 2013;310(19): 0016-7759 ?? (http://education.NetMovies/faq/WER317) Non-HDL Cholesterol 124 <130 mg/dL (calc) CONVERTED LEGACY LABS Comment: For patients with diabetes plus 1 major ASCVD risk ?? factor, treating to a non-HDL-C goal of <100 mg/dL ?? (LDL-C of <70 mg/dL) is considered a therapeutic ?? option. Triglycerides 71 <150 mg/dL CONVE RTED LEGACY LABS 06/30/2022 11:1 7 AM EST Ying Steinberg CREW PERSON LAB BLOOD ORDERABLES Final Res ult CONVERTED LEGACY LABS * Hm Colonoscopy (04/29/2021) Colonoscopy normal Comment:Colon CA Screen F/U 5 Yrs(small colon polyp. +family hx) Historical Provider HEALTH MAINTENANCE Edited Result - Final from Last 3 Months or Most Recently Relevant to Health Maintenance [facility] STAND [place] [phone] Care Teams Materials Management Manager Relationship Specialty Start Date End Date Ying Steinberg FNP [address] [place] [address] PCP - General Family Medicine 02/10/22 Tigre Soria MD [address] [place] [address] Urology 07/31/24
== END 2024-09-26 10:54 | disposition home or self-care (01) ==
LOC: HO.LAB 10:53
PROVIDERS: PCP Registered Nurse; Visit Provider Urology
DX: N32.0 Bladder-neck obstruction (principal); R31.29 Other microscopic hematuria; R39.11 Hesitancy of micturition; Z13.9 Encounter for screening, unspecified
CPT/HCPCS: 51798; 81003; 88121; 99212

== ENCOUNTER → 2024-09-26 10:53 | Outpatient (AMB) | payer OTHER, SELFPAY | END | disposition home or self-care (01) | PROVIDERS: PCP Registered Nurse; Visit Provider Urology | CPT/HCPCS: 99214 ==

== ENCOUNTER 2024-10-10 10:47 | Outpatient (REF) | payer OTHER, SELFPAY ==
--- NOTE | ~2024-10-10 | XR_ITS ---
EXAMINATION: XR CHEST CLINICAL INFORMATION: cough, sweats, decreased lung sounds RLL COMPARISON: 01/15/2021. 01/30/2024 CT chest. TECHNIQUE: 2 views of the chest were obtained. FINDINGS: The cardiac, hilar, and mediastinal contours are normal. The lungs are mildly hyperaerated however clear bilaterally. There is no pneumothorax or pleural effusion. There is no focal osseous or soft tissue abnormality. XR/XR chest 2V IMPRESSION: No active pulmonary disease. Electronically signed by: Willian Vidal MD 10/10/2024 11:[address] [facility]
--- OUTSIDE RECORDS SUMMARY | 2024-10-10 11:52 | XMS_ITS | Encounter Summary ---
Author Organization [employer] Address [address] [facility] 7t [place] [address] Care Team Providers Care Equity Research Analyst Name Role Phone Ying Steinberg Primary Care Provider [phone] Tigre Soria MD Unavailable [phone] Reason for Visit * Reason Onset Date Comments Nurse Triage 10/09/2024 Encounter Details Date Type Department Care Team ([facility] st Contact Info) Description 10/09/2024 Telephone [facility] MED[facility]INE [address] [place] [address] Ying Steinberg FNP [address] [place] [address] Nurse Triage Social History Tobacco Use Types Packs/Day [...] encounter Miscellaneous Notes * Telephone Encounter - Misty Rogers RN - 10/09/2024 2:35 PM EST No translator interpreter needed as this insurance writer speaks Yakut. Call returned to Jey Adame to triage below. Reports having dry cough, chest congestion and wheezing . Reports pain in chest worse with cough. Pt is heard to become easily fatigued with talking. Pt using Spiriva but not daily. Per pt using albuterol inhaler 3-5 times per day. Per pt had a fever last week. No home kit for COVID-19. Per pt spouse ill with similar sx and seen at ER, given rx for prednisone. Pt advised to seek WIC today if able to arrive before 4pm. Advised to seek UC or ER tonight if sx worsen or unable to make it to out WIC. Protocol Used: Asthma Attack (Adult) Protocol-Based Disposition: Go to Office or Video Visit Now Insurance verified as active per Real Time Eligibility in Epic. Video visit offer not recorded Positive Triage Question: * Quick-relief asthma medicine (e.g., albuterol /salbutamol, levalbuterol by inhaler or nebulizer) is needed more frequently than every 4 hours to keep you comfortable * All higher-acuity triage questions were negative Care Advice Discussed: * Reassurance and Education - Mild Asthma Attack * Reasons To Call Back - You become worse * Telephone Encounter - Miguel Jay - 10/09/2024 2:34 PM EST Symptoms: Chest Pain - Adult, Chest Congestion, Wheezing Outcome: Transfer to a nurse or provider NOW! Reason: Heaviness on chest The caller accepted this outcome. documented in this encounter Plan of Treatment Not on file documented as of this encounter Visit Diagnoses Not on filedocumented in this encounter Additional Health Concerns Assessment Noted Time PHQ-9 Depression Total Score: 0 05/23/20 24 1:06 PM EDT documented as of this encounter Care Teams Equity Research Analyst Relationship Specialty Start Date End Date Ying Steinberg FNP [address] [place] [id number] PCP - General Family Medicine 02/10/22 Tigre Soria MD [address] [place] [address] [address] [place] [address] Urology 07/31/24 documented as of this encounter
--- OUTSIDE RECORDS SUMMARY | 2024-10-10 11:52 | XMS_ITS | Encounter Summary ---
Author Organization [employer] Address [address] [facility] 7[address] [place] [address] Care Team Providers Care Printing Technician Name Role Phone Ying Steinberg Primary Care Provider [phone] Tigre Soria MD Unavailable [phone] Encounter Details Date Type Department Care Team (Late st Contact Info) Description 09/26/2024 Orders Only GENERIC EXTERNAL DATA DEPARTMENT Provider, Generic External Data Social History Tobacco Use Types Packs/Day Years [...] as of this encounter Plan of Treatment Not on file documented as of this encounter Procedures Procedure Name Priority Date/Time Associated Diagnosis Comments BLADDER CANCER, FISH Routine 09/26/2024 11:00 AM EST documented in this encounter Results * Bladder Cancer, FISH (09/26/2024 11:00 AM EST) Bladder Cancer, FISH see note [facility] Comment: Order ID: ? [id number] Type: ?UrineClinical Indication: ?Not providedRESULT:NEGATIVE RESULT FOR THE UROVYSION FISH ASSAYINTERPRETATION:A normal hybridization pattern was observed for chromosomes 3, 7, 9,and 17. This result is not indicative of bladder cancer according tothe UroVysion Directional Insert (Embrane/[employer]).Although the UroVysion test was designed to detect genetic changesassociated with most bladder cancers, not all genetic changes can bedetected by this test.The UroVysion test was designed for use on voided urine specimens asan aid for the initial diagnosis of bladder carcinoma in patientswith hematuria and subsequent monitoring for tumor recurrence inpatients previously diagnosed with bladder cancer.If the test results are not consistent with other clinical findings,a consultation between a pathologist and the treating physician iswarranted.Please expect the results of any other concurrent study in a separatereport.REFERENCE for SENSITIVITY and SPECIFICITY:Mae NANCE and Valerio BR. Bladder cancer detection using FISH(UroVysion assay). Adv Cecile Pathol 2008;15:279-86.NOMENCLATURE:nuc lobito(D3Z1,D7Z1,CDKN2A,D17Z1)x2[30]ASSAY INFORMATION:Method: FISH (Digital Image Analysis: Ikonisys/Ikoniscope)Cells Counted: 30Detection of >/= 4 of the 25 cells showing gains for 2 or morechromosomes (3, 7 or 17) in the same cell, or >/= 12 of the 25 cellshaving zero 9p21 signals is interpreted as a POSITIVE result.Lexy Cline, Ph.D., [facility], Openstack Developer, [employer], , [site AMD]Electronic Signature: ? 10/03/2024 3:29 PMTHIS TEST WAS PERFORMED AT:[id number] [place], [place] ??[id number] W. MASON,MD,PHD 09/26/2024 11:0 0 AM EST 09/26/2024 4:02 PM EST us Generic External Data Provider LAB URINE ORDERAB LES Final Result [facility] [address] [place] [phone] documented in this encounter Visit Diagnoses Not on filedocumented in this encounter Additional Health Concerns Assessment Noted Time PHQ-9 Depression Total Score: 0 05/23/20 24 1:06 PM EDT documented as of this encounter Care Teams Printing Technician Relationship Specialty Start Date End Date Ying Steinberg FNP [address] [place] [address] PCP - General Family Medicine 02/10/22 Tigre Soria MD [address] [place] [address] Urology 07/31/24 documented as of this encounter
--- OUTSIDE RECORDS SUMMARY | 2024-10-10 11:52 | XMS_ITS | Encounter Summary ---
Author Organization [employer] [facility] Address [address] [facility] [address] [place] [address] Care Team Providers Care Clinical Field Specialist Name Role Phone Ying Steinberg Primary Care Provider [phone] Tirge Soria MD Unavailable [phone] Encounter Details Date Type Department Care Team ([facility] st Contact Info) Description 07/06/2023 Abstract [facility] [address] [place] [address] Chasity Jean Social History Tobacco Use Types [...] on filedocumented in this encounter Care Teams Clinical Field Specialist Relationship Specialty Start Date End Date Ying Steinberg FNP [address] [place] [address] PCP - General Family Medicine 02/10/22 Tigre Soria MD [address] [place] [address] Urology 07/31/24 documented as of this encounter
--- OUTSIDE RECORDS SUMMARY | 2024-10-10 11:52 | XMS_ITS | Clinical Summary ---
Author Organization [employer] Address [address] [facility] 7t [place] [address] Care Team Providers Care Analytics Architect Name Role Phone Ying Steinberg Primary Care Provider [phone] Tigre Soria MD Unavailable [phone] Allergies No known active allergies Medications finasteride (Proscar) 5 MG tablet Take 5 mg by mouth in the morning. 08/01/20 22 Active econazole nitrate 1 % creamIndication s:Rash Apply topically 2 times daily. 1-3 weeks to affected area. 30 g 1 05/23/20 24 025 Active tiotropium (Spiriva Respimat) 2.5 MCG/ACT inhalerIndicati ons:Asthma-COPD overlap syndrome (CMS/HCC) Inhale 2 puffs Once per day. 1 each 11 05/23/20 24 025 Active Blood Pressure kitIndications: Elevated blood pressure reading Use to check Blood Pressure once daily 1 kit 05/23/20 24 Active pantoprazole (Protonix) 20 MG EC tabletIndicatio ns:Gastroesopha geal reflux disease, unspecified whether esophagitis present Take by mouth once daily 30 minutes before a meal. 90 tablet 1 05/23/20 24 Active buPROPion SR (Wellbutrin SR) 150 MG 12 hr tabletIndicatio ns:Tobacco dependence syndrome Take 1 tablet by mouth x 3 days THEN one tablet by mouth twice daily. Do not crush, chew, or split. 60 tablet 2 07/25/20 24 Active acetaminophen (Tylenol) 500 MG tablet Take 1 tablet (500 mg) by mouth every 6 (six) hours if needed for mild pain for up to 20 doses. 20 tablet 08/06/20 24 Active albuterol 108 (90 Base) MCG/ACT inhalerIndicati ons:Asthma-COPD overlap syndrome (CMS/HCC) Inhale 2 puffs Every 4-6 hours as needed for wheezing. 18 g 6 10/10/19 25 Active predniSONE (Deltasone) 20 MG tablet Take 2 tablets (40 mg) by mouth Once per day for 5 days. 10 tablet 10/10/19 25 025 Active doxycycline (Vibramycin) 100 MG capsule Take 1 capsule (100 mg) by mouth 2 times daily for 7 days. Take with at least 8 ounces (large glass) of water, do not lie down for 30 minutes after 14 capsule 10/10/19 25 025 Active guaiFENesin (Mucinex) 600 MG 12 hr tabletIndicatio ns:Pneumonia of right lower lobe due to infectious organism Take 1 tablet (600 mg) by mouth 2 times daily for 15 days. Do not crush, chew, or split. 30 tablet 10/10/19 25 025 Active Diclofenac Sodium (Voltaren) 1 % gelIndications: Hand arthritis Apply to hands topically 3 times daily as needed for pain 50 g 1 09/15/19 23 025 Discontinued( erapy completed) cyclobenzaprine (Flexeril) 10 MG tabletIndicatio ns:Acute midline low back pain without sciatica Take 1 tablet (10 mg) by mouth 3 times daily for 10 days. 30 tablet 01/09/20 23 025 Discontinued( erapy completed) albuterol 108 (90 Base) MCG/ACT inhalerIndicati ons:Asthma-COPD overlap syndrome (CMS/HCC) Inhale 2 puffs Every 4-6 hours as needed for wheezing. 18 g 3 05/23/20 24 025 Discontinued(Re order (will not trigger notification to Pharmacy)) ibuprofen 600 MG tablet Take 1 tablet (600 mg) by mouth every 6 (six) hours if needed for mild pain for up to 20 doses. 20 tablet 08/06/20 24 025 Discontinued(Th erapy completed) amoxicillin-cla vulanate (Augmentin) 875-125 MG tablet take 1 tablet by mouth twice daily until finished 03/10/20 24 025 Discontinued(Th erapy completed) oxyCODONE-aceta minophen (Percocet) 5-325 MG tablet Take 1 tablet by mouth every 6 (six) hours if needed for pain. 09/02/19 25 025 Discontinued(Th erapy completed) Active Problems Problem Noted Date Diagnosed Date Arthritis of carpometacarpal (CMC) joint of righ t thumb 10/10/2024 Bilateral hand numbness 10/10/2024 Bladder outlet obstruction 10/10/2024 Urinary hesitancy 10/10/2024 Tubular adenoma of colon 10/10/2024 Overview (10/10/2024): (TA on 2020 scope) Osteoarthritis of hands, bilateral 10/10/2024 Epigastric hernia 10/10/2024 Encounter for screening for malignant neoplasm o f colon 10/10/2024 Dental abscess 08/06/2024 Dental caries extending into [...] confirmed small abdominal wall hernia Consult with [facility] in Jul 2024 - plan for [...] Overview (09/15/2022): -History of ?inflammatory arthritis from [facility] Rhuem -Heberden's nodes on multiple fingers, tenderness to palpation -Patient with pain and discomfort Assessment & Plan (09/15/2022 3:00 PM EST): -Trial of topical voltaren gel -Given wait times for initial consult with rheum, will initiate with referral to [facility] Ortho Hand specialist for further eval -patient in agreement with plan Shoulder pain 05/17/2012 Chronic back pain 04/12/2012 Assessment & Plan (09/15/2022 3:01 PM EST): -Referral to PT for further eval and tx -Symptomatic management encouraged Microscopic hematuria 04/12/2012 Overview (05/25/2024): -Following with Dr. Soria [facility] Urology -Continues with finasteride 5mg daily -Cytology 07/10 negative -Imaging 07/10 CT Urogram no evidence of filling defects -Risk factors: smoking cigarettes Tobacco dependence syndrome 04/12/2012 Overview (08/29/2024): -Cigg/day: 1-2 cigg/day -Pack year history: > 20 -Lung CA screening: established with [facility] Thoracic for LDCT (December) LDCT: LungRADS 1 on 02/29/24. Follow up 1 year. - Encouraged smoking cessation resources such as pharmacomtherapy, [facility] smoking cessation group, and [facility] pharmacy smoking cessation clinic Assessment & Plan [...] Encounters Date Type Department Care Team Description 10/10/2024 10:00 AM EST Office Visit [facility] WALK-IN CENTER [address] [place] [address] Pneumonia of right lower lobe due to infectious organism (Primary Dx); Asthma-COPD overlap syndrome (CMS/HCC) 10/09/2024 Telephone [facility] MEDICINE [address] [place] [address] Ying Steinberg FNP Nurse Triage 09/26/2024 Orders Only GENERIC EXTERNAL DATA DEPARTMENT Provider, Generic External Data 08/29/2024 2:30 PM EST Office Visit [facility] [address] [place] [address] Ying Steinberg FNP Tobacco dependence syndrome (Primary Dx); Thyroid nodule 08/29/2024 Travel 08/25/2024 Telephone [facility] [address] [place], [place] [phone] Landen Trotter [place] Chart Prep 08/08/2024 Telephone [facility] MEDICINE [address] [place] [address] Ying Steinberg FNP Results 08/06/2024 1:00 PM EST Office Visit [facility] ADULT DENTAL [address] [place] [address] Primo Whittaker DDS Dental abscess (Primary Dx); Dental caries extending into pulp 07/25/2024 1:45 PM EST Office Visit [facility] [address] [place], [place] [phone] Ying Steinberg FNP Asthma-COPD overlap syndrome (CMS/HCC) (Primary Dx); Tobacco dependence syndrome; Alcohol use; Abdominal wall bulge 07/25/2024 Travel 07/24/2024 Telephone [facility] [address] [place], [place] [phone] Landen Trotter [place] Chart Prep 07/10/2024 Telephone [facility] [address] [place] [address] Ying Steinberg FNP from Last 3 Months [...] Sign Reading Time Taken Comments Blood Pressure 124/82 10/10/2024 10:16 AM EST Pulse 72 10/10/2024 10:16 AM EST Temperature 36.6 ??C (97.8 ??F) 10/10/2024 1 0:16 AM EST Respiratory Rate 18 10/10/2024 10:1 6 AM EST Oxygen Saturation 96% 10/10/2024 10: 16 AM EST Inhaled Oxygen Concentration - - Weight 52.5 kg (115 lb 12.8 oz) 025 10:16 AM EST Height 160.7 cm (5' 3.25 ) 10/10/2024 1 0:16 AM EST Body Mass Index 20.35 10/10/2024 10:16 AM EST Plan of Treatment Health Maintenance Due Date [...] Alcohol/Substance Use Screening 08/29/2025 08/29/2024 Tobacco Screening 10/10/2025 10/10/2024 Colonoscopy 04/29/2026 04/29/2021 Colorectal Cancer Screening 04/29/2026 [...] Procedure Name Priority Date/Time Associated Diagnosis Comments XR CHEST 2 VIEWS Routine 10/10/2024 11:2 3 AM EST Pneumonia of right lower lobe due to infectious organism BLADDER CANCER, FISH Routine 09/26/2024 11:00 AM EST CASE PRESENTATION, DETAILED AND EXTENSIVE TREATMENT PLANNING Routine 08/06/2024 1:00 PM EST INTRAORAL - PERIAPICAL FIRST RADIOGRAPHIC IMAGE Routine 08/06/2024 1:00 PM EST PALLIATIVE (EMERGENCY) TREATMENT OF DENTAL PAIN - MINOR PROCEDURE Routine 08/06/2024 1:00 PM EST ZZZ HISTORICAL HEPATITIS C AB W/REFL TO HCV RNA, QN, PCR Routine 06/30/2022 11:17 AM EST HIV 1/2 ANTIGEN/ANTIBODY, FOURTH GENERATION W/RFL Routine 06/30/2022 11:17 AM EST LIPID PANEL, STANDARD Routine 06/30/2022 11:17 AM EST HM COLONOSCOPY Routine 04/29/2021 INTRAORAL - COMPLETE SERIES OF RADIOGRAPHIC IMAGES Routine 10/08/2020 12:00 AM EST COMPREHENSIVE ORAL EVALUATION - NEW OR ESTABLISHED PATIENT Routine 10/08/2020 12:00 AM EST from Last 3 Months or Most Recently Relevant to Health Maintenance Results * XR Chest 2 Views (10/10/2024 11:23 AM EST) Anatomical Region Laterality Modality Chest Radiographic Elissa ging 10/10/2024 11:2 3 AM EST Narrative 10/10/2024 11:36 AM EST ? [facility] ?[address] ?[place] [address] ?XRay Report ? Signed ? Patient: Deep,Jey ?MR#: [id number] ? : 1970 ?Acct:[id number] ? Age/Sex: 54 / M ?ADM Date: 10/10/24 ? Loc: HO.HHCL ? Attending Dr: Vane Timmons MD ? Ordering Physician: Vane Timmons ?? Date of Service: 10/10/24 ?? Procedure(s): XR chest 2V ?? Accession Number(s): [id number] ? cc: Vane Timmons ? EXAMINATION: ?? XR CHEST ? CLINICAL INFORMATION: ?? cough, sweats, decreased lung sounds RLL ? COMPARISON: ?? 01/15/2021. ?? 01/30/2024 CT chest. ? TECHNIQUE: ?? 2 views of the chest were obtained. ? FINDINGS: ?? The cardiac, hilar, and mediastinal contours are normal. ? The lungs are mildly hyperaerated however clear bilaterally. There is ?? no pneumothorax or pleural effusion. ? There is no focal osseous or soft tissue abnormality. ? XR/XR chest 2V ?? IMPRESSION: ?? No active pulmonary disease. ? Electronically signed by: ??Willian Vidal MD ??10/10/2024 11:33 AM EST RP ? Dictated By: ?Willian Vidal MD ? Signed By: ?<Electronically signed by Willian Vidal MD in OV> ?10/10/24 1133 ? DD/ 1123 ? TD/TT: 10/10/24 1130 ? Solar Crew Member: ? Procedure Note Susan, Image - 10/10/[address] [place] [address] XRay Report Signed Patient: Jey AdameMR#: [id number] : 1970Acct:[id number] Age/Sex: 54 / MADM Date: 10/10/24 Loc: [facility] Attending Dr: Vane Timmons MD Ordering Physician: Vane Timmons Date of Service: 10/10/24 Procedure(s): XR chest 2V Accession Number(s): [id number] cc: Vane Timmons EXAMINATION: XR CHEST CLINICAL INFORMATION: cough, sweats, decreased lung sounds RLL COMPARISON: 01/15/2021. 01/30/2024 CT chest. TECHNIQUE: 2 views of the chest were obtained. FINDINGS: The cardiac, hilar, and mediastinal contours are normal. The lungs are mildly hyperaerated however clear bilaterally. There is no pneumothorax or pleural effusion. There is no focal osseous or soft tissue abnormality. XR/XR chest 2V IMPRESSION: No active pulmonary disease. Electronically signed by: Willian Vidal MD 10/10/2024 11:33 AM EST Dictated By: Willian Vidal MD Signed By: <Electronically signed by Willian Vidal MD in OV> 10/10/24 1133 DD/ 1123 TD/TT: 10/10/24 1130 Solar Crew Member: Vane Timmons MD IMG XR PROCEDURES Final Result * Bladder Cancer, FISH (09/26/2024 11:00 AM EST) Bladder Cancer, FISH see [facility] Comment: Order ID: ? [id number] Type: ?UrineClinical Indication: ?Not providedRESULT:NEGATIVE RESULT FOR THE UROVYSION FISH ASSAYINTERPRETATION:A normal hybridization pattern was observed for chromosomes 3, 7, 9,and 17. This result is not indicative of bladder cancer according tothe UroVysion Directional Insert ([employer]).Although the UroVysion test was designed to detect [...] in a separatereport.REFERENCE for SENSITIVITY and SPECIFICITY:Mae GOYO and Valerio BR. Bladder cancer detection using FISH(UroVysion assay). Adv Cecile Pathol 2008;15:279-86.NOMENCLATURE:nuc lobito(D3Z1,D7Z1,CDKN2A,D17Z1)x2[30]ASSAY INFORMATION:Method: FISH (Digital Image Analysis: Ikonisys/Ikoniscope)Cells Counted: 30Detection of >/= 4 of the 25 cells showing gains for 2 or morechromosomes (3, 7 or 17) in the same cell, or >/= 12 of the 25 cellshaving zero 9p21 signals is interpreted as a POSITIVE result.Lexy Cline, Ph.D., [facility], Timber Incisor Operator, [employer], , [site AMD10]Electronic Signature: ? 10/03/2024 3:29 PMTHIS TEST WAS PERFORMED AT:[facility] [id number] [place], [place] ??[id number] W. MASON,MD,PHD 09/26/2024 11:0 0 AM EST 09/26/2024 4:02 PM EST us Generic External Data Provider LAB URINE ORDERAB LES Final Result [facility] [address] [place] [phone] * HEPATITIS C AB W/REFL TO HCV [...] a test for HCV RNA (test code 81007) is suggested. ?? For additional information please refer to http://[employer]/faq/QVN28p0 (This link is being provided for informational/ educational purposes only.) ?? 06/30/2022 11:1 7 AM EST us Ying YUEN HISTORICAL/NON ORDERABLE LABS Final Result Performing Organization Address [facility] de Phone Number CONVERTED LEGACY LABS * HIV 1/2 ANTIGEN/ANTIBODY,FOURTH [...] ? For additional information please refer to http://[employer]/faq/FWX913 (This link is being provided for informational/ educational purposes only.) ? The performance of this assay has not been clinically validated in patients less than 2 years old. ?? 06/30/2022 11:1 7 AM EST us Ying YUEN LAB BLOOD ORDERABLES Final Res ult Performing Organization Address [facility]/ZIP Co de Phone Number CONVERTED LEGACY LABS * (ABNORMAL) LIPID PANEL, [...] ?? LDL-C is now calculated using the Mikhail-Valentine ?? calculation, which is a validated novel method providing ?? better accuracy than the Friedewald equation in the ?? estimation of LDL-C. ?? Mikhail MARCH et al. BAYLEE. 2013;310(19): 8995-2764 ?? (http://[employer]/faq/CIU591) Non-HDL Cholesterol 124 <130 mg/dL (calc) CONVERTED LEGACY LABS Comment: For patients with diabetes plus 1 major ASCVD risk ?? factor, treating to a non-HDL-C goal of <100 mg/dL ?? (LDL-C of <70 mg/dL) is considered a therapeutic ?? option. Triglycerides 71 <150 mg/dL CONVE RTED LEGACY LABS 06/30/2022 11:1 7 AM EST Ying Steinberg [facility]CE[facility] LAB BLOOD ORDERABLES Final Res ult CONVERTED LEGACY LABS * Hm Colonoscopy (04/29/2021) Colonoscopy normal Comment:Colon CA Screen F/U 5 Yrs(small colon polyp. +family hx) Historical Provider HEALTH MAINTENANCE Edited Result - Final from Last 3 Months or Most Recently Relevant to Health Maintenance Insurance [facility] MEDICAID STAND ADULT Care Teams Analytics Architect Relationship Specialty Start Date End Date Ying Steinberg FNP [address] [place] [address] PCP - General Family Medicine 02/10/22 Tigre Soria MD [address] [place] [address] Urology 07/31/24
--- OUTSIDE RECORDS SUMMARY | 2024-10-10 11:52 | XMS_ITS | Encounter Summary ---
Author Organization [employer] Address [address] [facility] 7t [place] [address] Care Team Providers Care Box Brander Name Role Phone Ying Steinberg Primary Care Provider [phone] Tigre Soria MD Unavailable [phone] Reason for Visit * Reason Comments Fatigue Encounter Details Date Type Department Care Team ([facility] st Contact Info) Description 10/10/2024 10:00 AM EST Office Visit [facility] [address] [place] [address] Pneumonia of right lower lobe due to infectious organism (Primary Dx); Asthma-COPD overlap syndrome (CMS/HCC) Social History Tobacco Use Types Packs/Day Years [...] Mass Index 20.35 10/10/2024 10:16 AM EST documented in this encounter Plan of Treatment Scheduled Orders Name Type Priority Associated Diagnoses Orde r Schedule CBC auto differential Lab Routine Pneumonia of right lower lobe due to infectious organism Expected: 10/10/2024 (Approximate), Expires: 10/10/2025 Comprehensive Metabolic Panel Lab Routine Pneumonia of right lower lobe due to infectious organism Expected: 10/10/2024 (Approximate), Expires: 10/10/2025 documented as of this encounter Procedures Procedure Name Priority Date/Time Associated Diagnosis Comments XR CHEST 2 VIEWS Routine 10/10/2024 11:2 3 AM EST Pneumonia of right lower lobe due to infectious organism documented in this encounter Results * XR Chest 2 Views (10/10/2024 11:23 AM EST) Anatomical Region Laterality Modality Chest Radiographic Elissa ging 10/10/2024 11:2 3 AM EST Narrative 10/10/2024 11:36 AM EST ? [facility] ?[address] ?[place] [address] ?XRay Report ? Signed ? Patient: Adame,Jey ?MR#: [id number] ? : 1970 ?Acct:[id number] ? Age/Sex: 54 / M ?ADM Date: 10/10/24 ? Loc: HO.HHCL ? Attending Dr: Vane Timmons MD ? Ordering Physician: Vane Timmons ?? Date of Service: 10/10/24 ?? Procedure(s): XR chest 2V ?? Accession Number(s): [id number] ? cc: Vane Timmons ? EXAMINATION: ?? [...] DD/ 1123 ? TD/TT: 10/10/24 1130 ? Patient Financial Specialist: ? Procedure Note Donottammyter, Image - 10/10/2024 [facility] [address] [place] [address] XRay Report Signed Patient: Jey AdameMR#: [id number] : 1970Acct:[id number] Age/Sex: 54 / MADM Date: 10/10/24 Loc: .HHCL Attending Dr: Vane Timmons MD Ordering Physician: Vane Timmons Date of Service: 10/10/24 Procedure(s): XR chest 2V Accession Number(s): [id number] cc: Vane Timmons EXAMINATION: XR CHEST CLINICAL [...] 10/10/24 1133 DD/ 1123 TD/TT: 10/10/24 1130 Patient Financial Specialist: Vane Timmons MD IMG XR PROCEDURES Final Result documented in this encounter Visit Diagnoses Diagnosis Pneumonia of right lower lobe due to infectious organism- Primary Asthma-COPD overlap syndrome (CMS/HCC) documented in this encounter Additional Health Concerns Assessment Noted Time PHQ-9 Depression Total Score: 0 05/23/20 24 1:06 PM EDT documented as of this encounter Care Teams Box Brander Relationship Specialty Start Date End Date Ying Steinberg FNP [address] [place] [address] PCP - General Family Medicine 02/10/22 Tigre Soria MD [address] [place] [address] Drive [address] [place] [address] Urology 07/31/24 documented as of this encounter
--- OUTSIDE RECORDS SUMMARY | 2024-10-10 11:52 | XMS_ITS | Clinical Summary ---
Author Organization [employer] [facility] ity Address [address] [place] [address] Care Team Providers Care Enamel Burner Name Role Phone Unavailable Primary Care Provider Unavailabl e Social History Tobacco Use Types Packs/Day Years Used Date Smoking Tobacco: Never Assessed Sex and Gender Information Value Date Recorded Sex Assigned at Not on file Legal Sex Male 3:44 PM EDT Gender Identity Not on file Sexual Orientation Not on file Plan of Treatment Health Maintenance Due Date Last Done Comments DTaP,Tdap,and Td Vaccines (1 - Tdap) 1988 Hepatitis B Vaccines (1 of 3 - 19+ 3-dose series) 1988 Pneumococcal Vaccine: 50+ Ye ars (1 of 1 - PCV) 2019 Zoster Vaccines (1 of 2) 2019 COVID-19 Vaccine ( - 2023-2 5 season) 2024 Influenza Vaccine (#1) 2024 [...] patient's age to complete this topic Meningococcal B Vacine Aged Out No lo nger eligible based on patient's age to complete [...]
--- OUTSIDE RECORDS SUMMARY | 2024-10-10 11:52 | XMS_ITS | Encounter Summary ---
Author Organization [employer] Address [address] [facility] 7[address] [place] [address] Care Team Providers Care System Safety Engineer Name Role Phone Ying Steinberg Primary Care Provider Tigre Soria MD Unavailable [phone] Reason for Visit * Reason Onset Date Comments Triage 01/08/2023 Encounter Details Date Type Department Care Team ([facility] st Contact Info) Description 01/08/2023 Telephone [facility] MED[facility] [address] [place] [address] Ying Steinberg FNP [address] [place] [address] Triage Social History Tobacco Use Types Packs/Day [...] advised to come to be seen in [facility] today to be seen by provider and [...] caller accepted this outcome Please contact at [phone] documented in this encounter Plan of Treatment Not on file documented as of this encounter Visit Diagnoses Not on filedocumented in this encounter Care Teams System Safety Engineer Relationship Specialty Start Date End Date Ying Steinberg FNP [address] [place] [address] PCP - General Family Medicine 02/10/22 Tigre Soria MD [address] [place] [address] Urology 07/31/24 documented as of this encounter
--- OUTSIDE RECORDS SUMMARY | 2024-10-10 11:52 | XMS_ITS | Patient Health Record ---
Author Organization [facility] Address [address] [place] [address] Care Team Providers Care Postal Clerk Name Role Phone Ruma Basilio M.D. Primary Care Provider Rhea Gage Cade Unavailable [phone] ALLERGIES No Known Allergies REASON FOR REFERRAL [...] malignant neoplasm of colon (Z12.11) Active confirmed 801109117 Problem Preprocedural examination (Z01.818) Active confirmed [id number] Problem Diverticulosis of sigmoid colon (K57.30) Active confirmed Diverticulosis of sigmoid colon (863312487) PLAN OF TREATMENT Pending Test Test Name Order Date Pathology 04/29/2021 Future Test Test Name Order Date COLONOSCOPY 04/05/2021 Insurance Providers Payer Name Payer Address Payer Phone Subscriber Number Group Number Insured Name Patient Relationship to Insured Coverage Start Date Coverage End Date [facility] [address] [address] [place], [place] [id number] ROSALIND MATIAS Self - patient is the insured MEDICAL (GENERAL) HISTORY Medical History History ICD Code Asthma History of hematuria-sees a Urologist--h e describes a negative cystoscopy Arthritis in his fingers Pneumonia Denies WA,DM,CVA,renal disease Surgical History Surgery Date(Month/Year) Right hand-broken hand and a trigger fin gertrudis
[2024-10-10 13:20] LABS: MANUAL DIFF FLAG NO
[2024-10-10 13:32] LABS: Basophils Percent Auto 0.3 % (0-2); Eosinophils Absolute Auto 0.2 X10*3/uL (0.0-0.4); Eosinophils Percent Auto 1.7 % (0-4); Hematocrit 35.5 % (42.0-52.0); Hemoglobin 12.3 g/dl (14.0-18.0); Imm Gran Abs Auto 0.03 X10*3/uL (0.00-0.03); Imm Gran Pct Auto 0.3 % (0.0-0.4); Lymphocytes Absolute Auto 2.6 X10*3/uL (1.2-4.9); Lymphocytes Percent Auto 27.7 % (20-40); Mean Corpuscular HGB Conc 34.6 g/dl (31.0-36.0); Mean Corpuscular Hemoglobin 32.1 pg (27.0-33.0); Mean Corpuscular Volume 92.7 fL (80.0-98.0); Mean Platelet Volume 9.3 fL (9.4-12.4); Monocytes Absolute Auto 1.1 X10*3/uL (0.1-1.2); Neutrophils Absolute Auto 5.5 x10*3/uL (2.0-8.3); Platelet Count 453 X10*3/uL (160-400); Red Blood Count 3.83 X10*6/uL (4.60-5.80); Red Cell Distribution Width 11.9 % (11.0-16.0); White Blood Count 9.4 X10*3/uL (4.8-10.8)
[2024-10-10 13:52] LABS: Alanine Aminotransferase 15 U/L (0-40); Albumin Level 3.4 g/dL (3.5-5.0); Alkaline Phosphatase 61 U/L (39-117); Anion Gap 9 (12-20); Aspartate Amino Transferase 30 U/L (5-37); Bilirubin Total 0.4 mg/dL (0.0-1.0); Blood Urea Nitrogen 11 mg/dL (9-16); Calcium 8.7 mg/dL (8.4-10.2); Carbon Dioxide 28 mmol/L (22-29); Chloride 104 mmol/L (96-108); Estimated Glomerular Filt Rate > 60; Glucose Random 97 mg/dL (60-115); Potassium 3.7 mmol/L (3.3-5.1); Sodium 137 mmol/L (135-145); Total Protein 6.7 g/dL (6.5-8.0)
== END 2024-10-10 10:48 | disposition home or self-care (01) ==
LOC: HO.HHCL 10:47
PROVIDERS: Visit Provider General Practice
DX: J18.9 Pneumonia, unspecified organism (principal)
CPT/HCPCS: 36415; 71046; 80053; 85025

== ENCOUNTER → 2024-10-10 11:23 | Outpatient (BNV) | payer OTHER, SELFPAY | PROVIDERS: Visit Provider Radiology Diagnostic Radiology | DX: R05.9 Cough, unspecified (principal) | CPT/HCPCS: 71046 ==

== ENCOUNTER → 2024-12-25 09:41 | Outpatient (BNVA) | payer OTHER, SELFPAY | PROVIDERS: Visit Provider Physician Assistant Medical | DX: S61.412A Laceration without foreign body of left hand, initial encounter (principal); W26.8XXA Contact with other sharp object(s), not elsewhere classified, initial encounter | CPT/HCPCS: 12001; 99204 ==

== ENCOUNTER → 2024-12-26 13:24 | Outpatient (BNVA) | payer OTHER, SELFPAY | PROVIDERS: Visit Provider Physician Assistant Medical | DX: S61.412A Laceration without foreign body of left hand, initial encounter (principal); W26.8XXA Contact with other sharp object(s), not elsewhere classified, initial encounter | CPT/HCPCS: 99213 ==

== ENCOUNTER → 2025-01-01 15:07 | Outpatient (BNVA) | payer OTHER, SELFPAY | PROVIDERS: Visit Provider Physician Assistant Medical | DX: Z48.02 Encounter for removal of sutures (principal); S61.412A Laceration without foreign body of left hand, initial encounter; W26.8XXA Contact with other sharp object(s), not elsewhere classified, initial encounter; Z02.79 Encounter for issue of other medical certificate | CPT/HCPCS: 99212; 99213 ==

== ENCOUNTER 2025-03-24 13:07 | Outpatient (REF) | payer OTHER, SELFPAY ==
--- NOTE | ~2025-03-24 | CT_ITS ---
CLINICAL HISTORY: F17.210 - Nicotine dependence, cigarettes, uncomplicated CT lung cancer screening (LDCT) Comparison: CT/REG/CT/SR - CT LUNG SCREENING - 02/29/24 13:[address]/SR - CT LUNG SCREENING - 01/26/23 13:29 EDT Technique: Axial CT images of the chest using low-dose technique. Referring provider counseled the patient on shared decision-making for LDCT screening. Additional counseling was provided on smoking cessation. Effective radiation dose total: DLP 33.3 mGycm, CTDIvol 1 mGy. Findings: Lung: No evidence of pneumonia or edema. No suspicious pulmonary nodules. Previously seen left thyroid nodule is not well seen on the current examination Coronary artery calcifications: Mild Limited upper abdomen: Unremarkable Other: None Impression: 1. Coronary artery disease. 2. LungRADS 1: Negative exam. Continue annual screening with low dose Chest CT in 12 months. ##L1## Category 1: Normal; continue annual screening Category 2: Benign appearance or behavior, continue annual screening Category 3: Probably benign, [address] recommended Category 4A: Suspicious, [address] recommended; may consider PET/CT Category 4B: Suspicious, Additional diagnostics and/or tissue sampling recommended Category 4X: Suspicious, Additional diagnostics and/or tissue sampling recommended Category 0: Recalls (incomplete screen due to Incomplete coverage, Noise, Respiratory motion, Expiration, Obscured by acute abnormality) This document has been electronically signed by: Ragini Nieves MD on 03/24/2025 15:47:16
--- OUTSIDE RECORDS SUMMARY | 2025-03-24 13:46 | XMS_ITS | Patient Health Record ---
Author Organization [facility] Address [address] [place] [address] Care Team Providers Care Plc Technician Name Role Phone Ruma Basilio M.D. Primary Care Provider Rhea Gage Cade Unavailable [phone] Allergies No Known Allergies Reason For Referral No Information Medications Medication SIG (Take, Route, Frequency, Duration) Notes [...] for 1 days 04/05/2021 Active albuterol Active Immunizations Vaccine Route Administration Date Status Comme nts Influenza Unknown 04/05/2021 Refused Social History Tobacco Use: Social History Observation Description Date Details (start date - stop date) Current Smoker NA - NA Tobacco Use/Smoking Question Answer Notes Patient is [...] drinks (2 points) Points 6 Interpretation Positive Section Notes: Smoker 2 packs per week; 24 beers/week(3 or 4 per day); smokes marijuana regularly Problems Problem Type SNOMED Code ICD Code Onset Dates Problem Status W/U Status Risk Notes Problem 985812357 Encounter for screening for malignant neoplasm of colon (Z12.11) Active confirmed Problem [id number] Preprocedural examination (Z01.818) Active confirmed Problem Diverticulosis of sigmoid colon (690635051) Diverticulosis of sigmoid colon (K57.30) Active confirmed Plan Of Treatment Pending Test Test Name Order Date Pathology 04/29/2021 Future Test Test Name Order Date COLONOSCOPY 04/05/2021 Insurance Providers Payer Name Payer Address Payer Phone Subscriber Number Group Number Insured Name Patient Relationship to Insured Coverage Start Date Coverage End Date [facility] [address] [address] [place], [place] [id number] ROSALIND MATIAS Self - patient is the insured Medical (General) History Medical History History ICD Code Asthma History of hematuria-sees a Urologist--h e describes a negative cystoscopy Arthritis in his fingers Pneumonia Denies CA,DM,CVA,renal disease Surgical History Surgery Date(Month/Year) Right hand-broken hand and a trigger fin gertrudis
--- OUTSIDE RECORDS SUMMARY | 2025-03-24 13:46 | XMS_ITS | Encounter Summary ---
Author Organization [employer] [facility] Address [address] [place] [address] Care Team Providers Care Director Of Compensation Name Role Phone Ying Steinberg Primary Care Provider [phone] Tigre Soria MD Unavailable [phone] Encounter Details Date Type Department Care Team (Late st Contact Info) Description 07/06/2023 Abstract [facility] [address] [place] [address] Chasity Jean Social History Tobacco Use Types [...] Care Team (Late st Contact Info) Description 04/03/2025 2:30 PM EDT Office Visit [facility] [address] [place], [place] [phone] Merced Sanchez, OD [address] [place], [place] [phone] documented as of this encounter Visit Diagnoses Not on filedocumented in this encounter Care Teams Director Of Compensation Relationship Specialty Start Date End Date Ying Steinberg FNP [address] [place] [id number] PCP - General Family Medicine 02/10/22 Tigre Soria MD [address] [place] [address] [address] [place] [address] Urology 07/31/24 documented as of this encounter
--- OUTSIDE RECORDS SUMMARY | 2025-03-24 13:46 | XMS_ITS | Clinical Summary ---
Author Organization [facility] [facility] it[facility] Address [address] [place] [address] Care Team Providers Care Tooth Inspector Name Role Phone Unavailable Primary Care Provider [...] Vaccine ( - 2023-2 5 season) 2024 Cholesterol Screening (Lipid Panel) 05/29/2024 Colorectal Cancer Screening: Colonoscopy 05/29/2024 HIV Screening 05/29/2024 Hepatitis C Screening 05/29/2024 Social Influencers of Health Screening 05/29/2024 Depression Screening 08/20/2024 Influenza Vaccine (#1) 2025 HIB Vaccines Aged Out No longer eligi [...] age to complete this topic Meningococcal B Vaccine Aged Out No l onger eligible based on patient's age to complete this topic RSV Immunization Patients Un trista 20 months Aged Out No longer eligible b ased on patient's age to complete this topic Varicella Vaccines Aged Out No longer eligible based on patient's age to complete this topic
== END 2025-03-24 13:08 | disposition home or self-care (01) ==
LOC: HO.CT 13:07
PROVIDERS: Visit Provider Physician Assistant Medical
DX: Z12.2 Encounter for screening for malignant neoplasm of respiratory organs (principal); F17.210 Nicotine dependence, cigarettes, uncomplicated
CPT/HCPCS: 71271

== ENCOUNTER → 2025-03-24 13:11 | Outpatient (BNV) | payer OTHER, SELFPAY | PROVIDERS: Visit Provider Radiology Diagnostic Radiology | DX: F17.210 Nicotine dependence, cigarettes, uncomplicated (principal) | CPT/HCPCS: 71271 ==

== ENCOUNTER 2025-07-15 11:47 | Outpatient (REF) | payer OTHER, SELFPAY ==
[2025-07-15 16:45] LABS: Anion Gap 11 (12-20); Blood Urea Nitrogen 16 mg/dL (9-16); Calcium 9.1 mg/dL (8.4-10.2); Carbon Dioxide 26 mmol/L (22-29); Chloride 104 mmol/L (96-108); Estimated Glomerular Filt Rate > 60; Potassium 3.9 mmol/L (3.3-5.1); Sodium 137 mmol/L (135-145)
== END 2025-07-15 11:48 | disposition home or self-care (01) ==
LOC: HO.HHCL 11:47
PROVIDERS: PCP Registered Nurse; Visit Provider Emergency Medicine
DX: Z11.3 Encounter for screening for infections with a predominantly sexual mode of transmission (principal); L03.011 Cellulitis of right finger; R21 Rash and other nonspecific skin eruption
CPT/HCPCS: 36415; 80048; 83036; 86592; 87070; 87077; 87186; 87205